=== PATIENT | female | born 1980 | race Caucasian/White ===

== ENCOUNTER → 2019-10-14 | Outpatient (CLI) | payer OTHER, SELFPAY ==
[2019-10-24 07:06] LABS: HPV APTIMA, High Risk Negative (Negative)
== END | disposition home or self-care (01) ==
LOC: LABSPEC 10-15 11:04
PROVIDERS: Visit Provider Obstetrics & Gynecology
DX: Z12.4 Encounter for screening for malignant neoplasm of cervix (principal)
CPT/HCPCS: 87624; 88175; G0145

== ENCOUNTER → 2020-01-18 | Outpatient (CLI) | payer OTHER, SELFPAY ==
--- NOTE | 2020-01-18 12:40 | RAD_ITS ---
STUDY: HYSTEROSALPINGOGRAM. REASON FOR EXAM: Female, 39 years old. INFERTILITY FLUOROSCOPY TIME (if supplied): ( 30 seconds ) minutes/seconds. 2 images were obtained. TECHNIQUE: A hysterosalpingogram was performed by the wetland scientist. Imaging was provided. COMPARISON: None. FINDINGS: The uterus is unremarkable. Both fallopian tubes were visualized and are patent. RAD/Salpingogram IMPRESSION: Normal hysterosalpingogram. Electronically Signed: Tito Lau, at 14:28 EDT , Service support ,
== END | disposition home or self-care (01) ==
LOC: RAD 12:34
PROVIDERS: Referring Provider Obstetrics & Gynecology; Visit Provider Obstetrics & Gynecology
DX: N97.9 Female infertility, unspecified (principal)
CPT/HCPCS: 58340; 74740; Q9967

== ENCOUNTER 2020-09-07 09:22 | Observation (INO) | payer OTHER, SELFPAY ==
[2020-09-04 12:52] LABS: Hematocrit 44.1 % (37-47); Hemoglobin 14.5 g/dL (12.0-15.0); Mean Corp Hgb Conc 32.9 g/dL (32-36); Mean Corpuscular Volume 91.3 fL (81-99); Mean Platelet Vol. 10.2 fl (6.2-12.0); Platelet Count 242 K/mm3 (150-450); RBC Distribution Width CV 11.9 % (11.6-14.6); RBC Distribution Width SD 39.9 fl (35.1-43.9); Red Blood Count 4.83 M/mm3 (4.2-5.4); White Blood Count 5.4 K/mm3 (4.4-11.0)
[2020-09-04 13:03] LABS: International Normalized Ratio 0.9; Prothrombin Time (Protime)PT. 11.7 SECONDS (11.7-14.9)
[2020-09-04 13:04] LABS: Partial Thromboplast Time 29.6 Seconds (24.1-36.2)
[2020-09-07] VITALS (17 sets, daily range): BP systolic 65–127; BP diastolic 40–84; PULSE 0–113; RESP 0–16; TEMP 35.9–37.1; O2SAT 98–100; BMI 22.6
--- NOTE | 2020-09-07 | IMM_PTH ---
PATIENT: NATHALIE LUCIO LOC: [facility] U#:[id number] AGE/SX: 39/F ROOM: [facility] RE09/07/[address]: Dr. Angie Marcelino MD : 1980 BED: 1 DIS: 09/08/2020 SPEC #: [id number] RECD: 09/08/20 11:09 STATUS: SOUBlu REQ #: [id number] ROSALIE: 09/07/20 00:[address]: Angie Hoyos DEPT: IMMUNOHISTOCHEMISTRY RECD BY: Aicha Zavala ENTERED: 09/08/20 11:10 SP TYPE: IMMUNO OTHR DR: Dr. Tyree De Los Santos MD No Primary Care Phys Tissues: Endometrium, NOS Procedures: CD138 (initial) PHYSICIAN & INSTITUTION [place] [id number] SPECIMEN INFORMATION: Tissue Source: Endometrium with polyp Clinical Info: Irregular menstruation, dysmenorrhea, uterine fibroid Specimen Number: [id number] CPT code: 64228 METHODOLOGY: Deparaffinized sections of prefer/formalin-fixed tissue or PAP/DQ stained slides are incubated with monoclonal/polyclonal antibodies/oligonucleotide probes. Localization is made via biotin free immunoperoxidase method. Appropriate controls are performed and reacted as expected. Results on target cell population are indicated in the following table: RESULTS: ANTIBODY / CLONE RESULT CD138 (B-A38) Rare cells These tests were developed and their performance characteristics determined by [facility]. They may not have been cleared or approved by the U.S. Food and Drug Administration. The FDA has determined that such clearance or approval is not necessary. INTERPRETATION: Endometrium with polyp: Rare plasma cells present.
[2020-09-07 06:26] LABS: Internal QC Validated? YES +Cl - CLEAR BKGD; Pregnancy, Urine Negative Negative
[2020-09-07] MEDS: Lactated Ringers 1,000 ML 100 ML IV ×3 (06:46→15:19)
--- NOTE | 2020-09-07 07:15 | HP.PCM.OB_ITS ---
History and Physical Date of Admission: 09/07/20 Surgical History and Physical Date: 09/04/2020 Name: LISA PUGH Age: 39 Date of : 1980 Lisa Pugh, a 39 year old female 0 0 0 0 0, presents for Hysteroscopic myomectomy with Symphion, Diagnostic laparoscopy, surgical treatment of endometriosis on September 07, 2020 at 7:30. --Lisa has hx uterine fibroids with heavy menstrual bleeding, dysmenorrhea and infertility. She is scheduled for hysteroscopic myomectomy, diagnostic laparoscopy and treatment of endometriosis as indicated. [facility] MEDICATIONS HISTORY: Current medications prescribed by our practice are: 1. dexamethasone 0.5 mg tablet, 1/2 tab po twice weekly 2. letrozole 2.5 mg tablet, On tab by mouth cycle day 3 through 7 ALLERGIES: Sulfa (Sulfonamide Antibiotics), Hives and/or rash Infections - no chicken pox Illnesses - none Accidents - no injuries of consequence Hospitalizations - None Review of Systems: GENERAL - Denies fever, or chills SKIN - Denies skin changes EYES - Denies visual changes EARS - Denies difficulty hearing NOSE - Denies nasal congestion or bleeding MOUTH - Denies sore throat or difficulty swallowing NECK - Denies pain or swelling RESPIRATORY - Denies shortness of breath or wheezing CARDIOVASCULAR - Denies palpitations or chest pain GASTROINTESTINAL - Denies nausea, vomiting, diarrhea, constipation GENITOURINARY - Denies dysuria, frequency of urination, incontinence of urine MUSCULOSKELETAL - Denies joint or muscle pain NEUROLOGICAL - Denies localized numbness or weakness PSYCHIATRIC - Denies depression or anxiety ENDOCRINE - Denies heat or cold intolerance, weight loss or gain HEMATO-IMMUNOLOGIC - Denies excesive bleeding with cuts SOCIAL HISTORY: Alcohol Use - RARELY Smoking - used to smoke but quit Diet - balanced Diet Lifestyle - Exercise - none Seat Belt Use - always Employer - Self-employed 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 none ; - PHYSICAL EXAM BP- 118/86 Sitting, Right arm, regular cuff Temp- 98.0 Taken Orally Weight- 115.03133 lbs Height- 59.00 inch BMI:23.28 CONSTITUTIONAL - NAD, well nourished, and well developed SKIN - No rash, lesions, or ulcers HEENT - normocephalic, atraumatic, sclerae anicteric LUNGS - CTA x2 without wheezes, crackles or rales CARDIAC - Regular rate and rhythm without rubs, murmurs, or gallops ABDOMEN - Without hepatosplenomegaly, distention, masses, rebound, or guarding; normal bowel sounds; no hernias EXTREMITIES - No edema or calf tenderness NEUROLOGICAL - normal gait, normal balance, normal motor PSYCHIATRIC - A and O to time, place, person, mood and affect ASSESSMENT/PLAN: 1. Other Specified Irregular Menstruation, Dysmenorrhea, Unspecified and Uterine Fibroid Reviewed procedural r/b/i/a Consents signed Discussed preprocedural preparation and med management - will continue low dose steroid Preop labs today Pt questions answered to her satisfaction
[2020-09-07] MEDS: Lidocaine 1% (30 ml sdv) 30 ML Vial (07:20)
--- NOTE | 2020-09-07 07:30 | EMB_PTH ---
PATIENT: NATHALIE LUCIO LOC: [facility] U#:[id number] AGE/SX: 39/F ROOM: [facility] RE09/07/[address]: Dr. Angie Marcelino MD : 1980 BED: 1 DIS: 09/08/2020 SPEC #: [id number] RECD: 09/07/20 11:22 STATUS: JEAN MARIE NARVAEZ #: [id number] ROSALIE: 09/07/20 07:[address]: Angie Hoyos DEPT: SURGICAL PATHOLOGY RECD BY: Nedra Quiles ENTERED: 09/07/20 13:01 SP TYPE: ENDOM BX/C JAYLON DR: Dr. Tyree De Los Santos MD No Primary Care Phys Tissues: Endometrium, NOS Procedures: Surgery Specimen Level IV HEADER OPERATION: Hysteroscopy with Symphion PRE-OP DIAGNOSIS: Irregular menstruation, dysmenorrhea, uterine fibroid TISSUE SUBMITTED: Endometrium and polyp MICROSCOPIC DIAGNOSIS Endometrium, curettings: Polypoid fragments of mildly disordered endometrium. Rare plasma cells suggestive of minimal chronic inflammation. Rare strips of benign superficial endocervix. See comment. AM:jeffery 09/08/2020 COMMENT Immunohistochemistry ([id number]) supports the above diagnosis. MICROSCOPIC DESCRIPTION Slides are reviewed. GROSS DESCRIPTION Received in fixative is one container labeled with the patient's name and designated endometrium and polyp. The specimen consists of multiple fragments of suarez-pink to hemorrhagic soft tissue that in aggregate measure 2.5 x 1 x 0.2 cm. The specimen is totally submitted in one cassette. / SJ:jeffery 09/07/2020 TC:2 CPT: 40640
--- NOTE | 2020-09-07 08:49 | EKG12_ITS ---
Test Reason : POST OP Blood Pressure : / mmHG Vent. Rate : 099 BPM Atrial Rate : 099 BPM P-R Int : 156 ms QRS Dur : 072 ms QT Int : 342 ms P-R-T Axes : 066 049 044 degrees QTc Int : 438 ms Normal sinus rhythm Normal ECG Confirmed by LAKEISHA LUNA, ANNE-MARIE ([id number]), newspaper editor JAZMYNE MOORE ([id number]) on 09/12/2020 10:24:08 A M Referred By: Angie Marcelino Confirmed By:BRIANNE SUAZO MD
--- NOTE | 2020-09-07 09:03 | PCM.OPRPT ---
Problems Associated Problem List Diagnoses (1) Dysmenorrhea: (2) Menorrhagia: (3) Uterine fibroid: Report of Operation Date of Procedure: 09/07/20 Pre-Operative Diagnosis: 1. Dysmenorrhea 2. Menorrhagia Post-Operative Diagnosis: 1. Dysmenorrhea 2. Menorrhagia Surgery/Procedure Performed:: Hysteroscopic polypectomy with Symphion Diagnostic laparoscopy Surgeon: Angie Hoyos automotive sales associate: Akin Cannon Type of Anesthesia: General and Local Anesthesiologist: Jaxon Mcpherson Specimen's removed: endometrial sampling with polyp Estimated Blood Loss (mL): 5 Description of Procedure: Indications: 39-year-old nulligravida with a history of menorrhagia, chronic dysmenorrhea with heavy menses in the setting of infertility presents for scheduled hysteroscopic myomectomy for uterine fibroid and diagnostic laparoscopy to rule out endometriosis. Procedure risks, benefits, indications and alternatives were reviewed and patient desired to proceed. Procedure: The patient was brought to the operating room and signed and performed. She placed in the dorsal supine position and induced under general anesthesia and intubated. She was repositioned to dorsolithotomy and examination under anesthesia was performed. Straight catheterization of the bladder was done. The abdomen and perineum were prepped and draped in sterile fashion. Patient placed into high lithotomy and a speculum placed in the vagina. Cervix was Grasped with a single-tooth tenaculum at the anterior cervical lip and a paracervical block was placed with a total of 20 cc of 1% lidocaine. The uterus was sounded. The cervix was subsequently dilated hysteroscopy performed using the Symphony on system demonstrating endometrial polyps with no evidence of a fibroid impinging on the endometrium. Endometrial sampling and polyp resection were performed using the Symphion. The hysteroscopy was completed and scope was removed. A ZUMI uterine manipulator was placed and secured. The patient was placed into low lithotomy attention turned to the abdomen. An inferior umbilical incision was made using the scalpel and Veress needle placed with abdominal entry pressure less than 5 mmHg. There was a successful hanging drop test with no aspirate. The abdomen was insufflated to 15 mmHg. The Veress needle was removed. On placement of the trocar with the laparoscope was advised by the anesthesiology team the patient had bradycardia. This was followed by approximately 20 seconds of asystole. The abdominal cavity was entered with the trocar as confirmed by laparoscopy and the abdomen was immediately desufflated and the trocar removed. The chest compressions were initiated, however, patient pulse was detected shortly thereafter and compressions discontinued. Vitals stabilized. I felt it in the best interest of the patient to discontinue the procedure and assess her further. The abdominal incision was closed using 4-0 Monocryl by the SOCIAL WELFARE ADMINISTRATOR under my supervision. The ZUMI uterine manipulator was removed. The patient was then repositioned to dorsal supine, awakened, extubated and transferred to the recovery room without further complication. Consider glycopyrrolate administration for further laparoscopy. Complications Bradycardia to asystole on insufflation. Glycopyrrolate and Atropine administered. Admit VTE Documentation VTE Present on Admission: No VTE Mechan Device Prophylaxis: SCD's
[2020-09-07 09:32] LABS: Hematocrit 39.9 % (37-47); Mean Corp Hgb Conc 32.6 g/dL (32-36); Mean Corpuscular Volume 92.1 fL (81-99); Mean Platelet Vol. 9.8 fl (6.2-12.0); Platelet Count 195 K/mm3 (150-450); RBC Distribution Width CV 11.9 % (11.6-14.6); RBC Distribution Width SD 40.3 fl (35.1-43.9); Red Blood Count 4.33 M/mm3 (4.2-5.4); White Blood Count 4.8 K/mm3 (4.4-11.0)
[2020-09-07 09:43] LABS: Albumin, Serum 3.6 g/dL (3.2-5.0)
[2020-09-07 09:48] LABS: Anion Gap 6 (5-15); BUN 17 mg/dL (7-18); BUN/Creat Ratio 23.4 RATIO (10-20); Calcium,Total 8.6 mg/dL (8.5-10.1); Chloride 105 mmol/L (98-107); Creatinine, Serum 0.73 mg/dL (0.55-1.02); EST Glomerular Filtration Rate 95 mL/min (>60); Est Glom Filt Rate - Afr Amer 115 mL/min (>60); Estimated Creatinine Clearance 84.62 ml/min; Glucose 112 mg/dL (74-106); Magnesium 1.9 mg/dL (1.6-2.6); Potassium 3.8 mmol/L (3.5-5.1); Sodium Level 138 mmol/L (136-145)
--- NOTE | 2020-09-07 10:14 | PCM.DC.SUM ---
Providers Date of Admission: 09/07/20 Primary Care Physician: No Primary Care Phys Reason For Visit: HYSTEROSCOPY D&C SYMPHION/DIAG LAP ENDOMETRIOSIS Diagnosis Discharge Diagnosis (1) Dysmenorrhea: Status: Acute Code(s): N94.6 - Dysmenorrhea, unspecified (2) Menorrhagia: Status: Acute Code(s): N92.0 - Excessive and frequent menstruation with regular cycle (3) Uterine fibroid: Status: Acute Code(s): D25.9 - Leiomyoma of uterus, unspecified Medications at Discharge Home Medications B.breve-L.acid-L.rham-S.thermo 2 tab PO DAILY 08/31/20 Cortisol Supervisor Open Hearth Stockyard 2 tab PO/SL DAILY 08/31/20 Excedrin Extra Strength 1 tab PO Q6H PRN 08/31/20 Mario-Inositol 2,000 mg PO/SL BID 08/31/20 Progestrone 200 mg OTHER PRN PRN 08/31/20 Smarty Pants 3 tab PO/SL BID 08/31/20 Vitamin C 1,000 mg PO DAILY 08/31/20 cholecalciferol (vitamin D3) [Vitamin D3] 500 mcg PO MO 08/31/20 dexamethasone 0.25 mg PO MOTH 08/31/20 omega-3 fatty acids 2,000 mg PO DAILY 08/31/20 mgyildflrz-veibwnaptluwq-kfpw 2 tab PO Q12H PRN PRN #30 tab 09/08/20 ibuprofen 600 mg PO Q8H PRN #30 tab 09/08/20 Hospital Course Operations - (Hysteroscopic polypectomy, Diagnostic laparoscopy) Summary of Care Provided Hospital Course: 39yo nulligravida with history of uterine fibroids, heavy menses, dysmenorrhea, and infertility presented for scheduled hysteroscopy and laparoscopy to r/o endometriosis. She underwent hysteroscopy, however following abdominal insufflation experienced bradycardia to asystole for 20 seconds. The pulse recovered following administration Glycopyrrolate and Atropine. The laparoscopy was discontinued for patient safety. She was stabilized, awakened and extubated. Troponins and electrolytes were normal immediately post-op. Hospitalist consultation obtained and echocardiogram was performed. She was discharged to home on post-operative day#1. ABG / Lab / Microbiology Data Result Diagrams: 09/07/20 09:15 09/07/20 09:15 Laboratory: Laboratory Results - last 24 hr 09/07/20 09/07/20 09/07/20 06:15 09:15 09:15 WBC 4.8 RBC 4.33 Hgb 13.0 Hct 39.9 MCV 92.1 MCH 30.0 MCHC 32.6 RDW Std Deviation 40.3 RDW Coeff of Andrew 11.9 Plt Count 195 MPV 9.8 Sodium 138 Potassium 3.8 Chloride 105 Carbon Dioxide 27.0 Anion Gap 6 BUN 17 Creatinine 0.73 Estim Creat Clear Calc 84.62 Est GFR (MDRD) Af Amer 115 Est GFR (MDRD) Non-Af 95 BUN/Creatinine Ratio 23.4 H Glucose 112 H Calcium 8.6 Magnesium 1.9 Troponin I < 0.015 Albumin Urine Test Negative 09/07/20 09:15 WBC RBC Hgb Hct MCV MCH MCHC RDW Std Deviation RDW Coeff of Andrew Plt Count MPV Sodium Potassium Chloride Carbon Dioxide Anion Gap BUN Creatinine Estim Creat Clear Calc Est GFR (MDRD) Af Amer Est GFR (MDRD) Non-Af BUN/Creatinine Ratio Glucose Calcium Magnesium Troponin I Albumin 3.6 Urine Test D/C Instructions Discharge Diet: No restrictions Discharge Activity: Return to Normal Activity and May Take a Tub Bath May resume sexual activity in: - (2-4 weeks) Lifting Restricted to (Lbs): 10 Call your doctor if your incision/area has: Continuous Slow Oozing, Sudden Increased Bleeding, Increased Pain/ Swelling, Increased Redness, Foul Smelling Discharge and Swelling at the incision site Call your doctor if you observe: Fever of 101 or Higher, Using more than one pad per hour, Shortness of breath, Chest pain and Uncontrolled pain Remove Dressing in: 3 days Cleanse incision/area with: Soap & Water Please Follow Up With: Angie Hoyos MD When: 2-4 weeks - office will call for follow up Meaningful Use Info Meaningful Use Diagnoses (Choose all that apply): None applicable Discharge Plan Admission Admit Date/Time: 09/07/20 09:22 Attending Provider: Angie Hoyos Primary Care Provider: Care Physician,No Primary Consulting Providers: Tyree De Los Santos Instructions Patient Instructions: ED About Arrhythmias, ED Bradycardia Additional Instructions / Restrictions: after that. monitor and follow with Dr. Ramey 330-day event Discharge Orders/Prescriptions Prescriptions: New zmcyliqlpj-vpfuusbipjpgm-ybvt 50-325-40 mg Tablet 2 tab PO Q12H PRN PRN (Reason: Headache) Qty: 30 RF: 1 ibuprofen 600 mg tablet 600 mg PO Q8H PRN (Reason: pain) Qty: 30 RF: 0 Continued Vitamin C 1,000 mg Tablet Extended Release 1,000 mg PO DAILY RF: 0 dexamethasone 0.25 mg Tablet 0.25 mg PO MOTH RF: 0 Excedrin Extra Strength 250-250-65 mg Tablet 1 tab PO Q6H PRN (Reason: headaches) RF: 0 omega-3 fatty acids Capsule 2,000 mg PO DAILY RF: 0 cholecalciferol (vitamin D3) [Vitamin D3] 125 mcg (5,000 unit) Tablet 500 mcg PO MO RF: 0 B.breve-L.acid-L.rham-S.thermo 3 billion cell Tablet,Chewable 2 tab PO DAILY RF: 0 Cortisol Supervisor [employer]yard 2 tab PO/SL DAILY RF: 0 Mario-Inositol 2,000 mg PO/SL BID RF: 0 Progestrone 200 mg OTHER PRN PRN (Reason: menstration peak) RF: 0 Smarty Pants 3 tab PO/SL BID RF: 0 Other Ambulatory Orders: COVID 19 AG RAPID (RN COLLECT) (Routine) Timeframe: 20200904 Facility: [facility] - Location: Laboratory Ordered By: Dr. Kalpesh Downing ,Urine (Routine) Timeframe: [id number] Facility: [facility] - Location: Laboratory Ordered By: Dr. Kalpesh Downing 30-Day Event Recorder (Routine) Location: None Selected Ordered By: Dr. Tyree De Los Santos Referrals / Follow Up: Leslie Jacques MD [STAFF PHYSICIAN] - Within 1 Month (Follow-up in 1 month after 30-day event monitor for sinus arrest during anesthesia with history of vasovagal syncope) Care Physician,No Primary [Primary Care Provider] - Disposition Discharge Orders: Discharge Patient (Routine); Ordered 09/08/20 Ordered By: Dr. Angie Marcelino
--- NOTE | 2020-09-07 10:26 | CON.PCM.HO_ITS ---
Assessment & Plan Assessment/Plan (1) Menorrhagia: (2) Uterine fibroid: (3) Sinus pause: (4) Sinus bradycardia by electrocardiogram: PLAN: 1. Sinus pause for about 48 seconds with sinus bradycardia probably related to anesthetic agents with underlying history of strong vasovagal reflex: Patient is being admitted in PCU for cardiac monitoring. BMP shows normal electrolytes, kidney function and anion gap. IV fluid normal saline 100 mL/h. 2D echo is ordered. Avoid AV mirian medications. 2. History of syncope in the past with migraine headache: On Excedrin 3. Exercise-induced asthma: She did not had episode of asthma in recent past. She used to take albuterol inhaler before exercise. 4. Menorrhagia, infertility, uterine fibroid: Being managed by PRODUCTION CLOTH CUTTER Dr. Fields. DVT prophylaxis: Early ambulation. Bilateral SCDs HPI Consult Data Date of Consult: 09/07/20 PCP / Referring MD: aminata HPI Narrative Reason for Consultation: Sinus pause HPI Narrative: NATHALIE LUCIO, is a 39 F with history of recurrent syncope, strong vagal reflex was in OR for elective hysteroscopy polypectomy with diagnostic laparoscopy for infertility, menorrhagia and dysmenorrhea. Patient has uterine fibroid. During insufflation for laparoscopy, patient paused from 8: 40: 12 to 8: 40: 36. Her BP was 65/40, heart rate was in 30s and glycopyrrolate was given. During that time, she also had 6 chest compressions although she did not go into cardiac arrest. At that time atropine 0.4 mg was given heart rate went up 106/min, blood pressure 114/84, 113/79. She is alert, awake, oriented x3 and having water and ice chips at bedside. No dizziness, chest pain, shortness of breath. Twelve-lead EKG shows sinus tachycardia at 113 bpm, QTC 469 ms. Patient has history of recurrent syncope, total 3 in her lifetime. She had 1 syncope after Benadryl which she took for bee sting. She describes the prior event which starts with heart rate slowing down, feeling of warmth, nausea, and discomfort and results consistent with strong vasovagal reflex. She denies syncope with defecation, micturition, eating, on a strong emotional stimulus. She denies congenital heart disease. Her father had mitral stenosis and of complication in 60s. Her mother is healthy. Past medical history: Exercise-induced asthma, migraine headache which takes Excedrin, infertility, menorrhagia and uterine fibroid. No history of hypertension, diabetes mellitus, cardiac disease. [facility] Medical History Anxiety Asthma Back pain Irregular heart beat Migraine headache Non-smoker Seizures Shortness of breath on exertion Venous insufficiency of right leg Wears glasses Home Medications B.breve-L.acid-L.rham-S.thermo [Probiotic] 2 tab PO DAILY 08/31/20 [History Last Taken Unknown] Cortisol Senior Test Analyst 2 tab PO/SL DAILY 08/31/20 [History Last Taken Unknown] Mario-Inositol 2,000 mg PO/SL BID 08/31/20 [History Last Taken Unknown] Progestrone 200 mg OTHER PRN PRN 08/31/20 [History Last Taken Unknown] Smarty Pants 3 tab PO/SL BID 08/31/20 [History Last Taken Unknown] ascorbic acid (vitamin C) [Vitamin C] 1,000 mg PO DAILY 08/31/20 [History Last Taken Unknown] kounplt-ifioanauclfcc-dtnhsvkg [Excedrin Extra Strength] 1 tab PO Q6H PRN 08/31/20 [History Last Taken Unknown] cholecalciferol (vitamin D3) [Vitamin D3] 500 mcg PO MO 08/31/20 [History Last Taken Unknown] dexamethasone 0.25 mg PO MOTH 08/31/20 [History Last Taken Unknown] omega-3 fatty acids [Fish Oil] 2,000 mg PO DAILY 08/31/20 [History Last Taken Unknown] Allergy/AdvReac Type Severity Reaction Status Date / Time Sulfa (Sulfonamide Allergy Hives Verified 08/31/20 13:44 Antibiotics) diphenhydramine AdvReac passed out Verified 08/31/20 13:44 [From Benadryl] lactose AdvReac Nausea/Vom/ Verified 08/31/20 13:44 Diarrhea Social History Smoking Status: Never smoker ROS ROS Narrative Constitutional: No fatigue and weakness. Awake and alert. HEENT: Reports systems reviewed and no addt'l complaints, except as documented Respiratory/Chest: Denies shortness of breath with exertion. No chest pain Gastrointestinal: Denies coffee ground emesis, hematemesis or vomiting Genitourinary: Denies burning urination Musculoskeletal: Reports joint pain and limited range of motion Neurologic: Denies seizure-like activity Endocrinology: Reports systems reviewed and no addt'l complaints, except as documented Hematologic/Lymphatic: Reports systems reviewed and no addt'l complaints, except as documented Rest 12 ROS are negative except as mentioned in HPI Physical Exam Narrative General: Alert, Oriented x3, Cooperative HEENT: Atraumatic, PERRLA, EOMI, Normocephalic Oral: No Gingival or Mucosal Lesions/ Ulcerations Neck: Supple, No JVD, Negative Carotid Bruits Lungs: Air entry equal in bilateral lung bases. No crepitation/rhonchi Cardiovascular: Sinus tachycardia, Normal S1, Normal S2, No murmurs Abdomen: Bowel Sounds absent, Soft, Non Tender, Non-Distended. Laparoscopic por t dressing dry. : No renal angle tenderness. No suprapubic tenderness. Extremities: No edema, Capillary Refill Less than 3 Seconds Skin: No rashes, No breakdown Musculoskeletal: No Tenderness to Palpation of Joints or Extremities Neurological: Cranial nerves II-XII grossly intact, Deep Tendon Reflexes 2+/4 and Symmetrical, Neuro grossly intact Psych/Mental Status: Normal Affect, Appropriate. Lab / Micro Data Result Diagrams: 09/07/20 09:15 09/07/20 09:15 Labs: Laboratory Results - last 24 hr 09/07/20 09/07/20 09/07/20 06:15 09:15 09:15 WBC 4.8 RBC 4.33 Hgb 13.0 Hct 39.9 MCV 92.1 MCH 30.0 MCHC 32.6 RDW Std Deviation 40.3 RDW Coeff of Andrew 11.9 Plt Count 195 MPV 9.8 Sodium 138 Potassium 3.8 Chloride 105 Carbon Dioxide 27.0 Anion Gap 6 BUN 17 Creatinine 0.73 Estim Creat Clear Calc 84.62 Est GFR (MDRD) Af Amer 115 Est GFR (MDRD) Non-Af 95 BUN/Creatinine Ratio 23.4 H Glucose 112 H Calcium 8.6 Magnesium 1.9 Troponin I < 0.015 Albumin Urine Test Negative 09/07/20 09:15 WBC RBC Hgb Hct MCV MCH MCHC RDW Std Deviation RDW Coeff of Andrew Plt Count MPV Sodium Potassium Chloride Carbon Dioxide Anion Gap BUN Creatinine Estim Creat Clear Calc Est GFR (MDRD) Af Amer Est GFR (MDRD) Non-Af BUN/Creatinine Ratio Glucose Calcium Magnesium Troponin I Albumin 3.6 Urine Test Charges/Coding Visit Charges OBSV E&M: 59804 Initial observation care L3
--- NOTE | 2020-09-07 10:43 | ECHOD_ITS ---
Reason For Study: Sinus pause Procedure This was a 2D Doppler, Color Flow transthoracic echocardiogram. Exam performed in department. Left Ventricle Normal LV size. The estimated ejection fraction is 60 %. No evidence for diastolic dysfunction. No regional wall motion abnormalities noted. Right Ventricle Normal RV size. Normal systolic function. Atria Normal left atrium. Normal right atrium. No doppler evidence for ASD. Mitral Valve There is no mitral valve stenosis. Trivial mitral valve insufficiency. Tricuspid Valve There is no tricuspid stenosis. No tricuspid valve insufficiency. Unable to estimate RV systolic pressure due to insufficient tricuspid regurgitant envelope. Aortic Valve Trisinus/trileaflet aortic valve. There is no aortic stenosis. No aortic valve insufficiency. Pulmonic Valve There is no pulmonic valvular stenosis. No pulmonic valve insufficiency. Great Vessels Normal aortic root. Pericardium/Pleural No pericardial effusion. MMode/2D Measurements & Calculations LVIDd: 4.0 cm IVSd: 0.85 cm Ao root diam: 2.4 cm LVIDs: 2.5 cm LVPWd: 0.70 cm RVDd: 2.4 cm FS: 37.9 % LAV(MOD-bp): 21.2 ml LVAd ap4: 21.1 cm2 LVAd ap2: 22.0 cm2 LAV(MOD-bp) Indexed: 14.7 ml/m2 LVLd ap4: 6.9 cm LVLd ap2: 7.0 cm LAV(MOD-sp2): 24.7 ml EDV(MOD-sp4): 53.0 ml EDV(MOD-sp2): 55.8 ml LAV(MOD-sp4): 17.7 ml EDV(sp4-el): 55.1 ml EDV(sp2-el): 58.6 ml LVAs ap4: 10.7 cm2 LVAs ap2: 12.8 cm2 LVLs ap4: 5.5 cm LVLs ap2: 6.2 cm ESV(MOD-sp4): 17.4 ml ESV(MOD-sp2): 21.9 ml ESV(sp4-el): 17.8 ml ESV(sp2-el): 22.7 ml EF(MOD-sp4): 67.1 % EF(MOD-sp2): 60.8 % EF(sp4-el): 67.7 % SV(MOD-sp4): 35.6 ml SV(MOD-sp2): 33.9 ml SV(sp4-el): 37.3 ml LA A4 area: 9.3 cm2 RA A4 area: 8.7 cm2 Doppler Measurements & Calculations MV E max jesus: 118.2 cm/sec Lat Peak E' Jesus: 18.2 cm/sec Med Peak E' Jesus: 10.5 cm/sec MV A max jesus: 100.9 cm/sec E/E' lat: 6.5 E/E' med: 11.3 MV E/A: 1.2 Ao V2 max: 136.5 cm/sec LV V1 max: 111.0 cm/sec Ao max P.5 mmHg LV V1 max P.9 mmHg ECHO/Echo Complete Interpretation Summary The estimated ejection fraction is 60 %. No evidence for diastolic dysfunction. Trivial mitral valve insufficiency. Ordering Physician: Tyree De Los Santos Referring Physician: Angie Hoyos Performed By: Palak Christensen RDCS
[2020-09-07 11:25] LABS: Phosphorus 3.1 mg/dL (2.5-4.9)
--- NOTE | 2020-09-07 13:30 | EKG12_ITS ---
Test Reason : Blood Pressure : / mmHG Vent. Rate : 113 BPM Atrial Rate : 113 BPM P-R Int : 160 ms QRS Dur : 078 ms QT Int : 342 ms P-R-T Axes : 069 073 060 degrees QTc Int : 469 ms Sinus tachycardia Otherwise normal ECG Confirmed by ALICE LUNA, RATNA ([id number]), supervising editor news reel JAZMYNE MOORE ([id number]) on 09/13/2020 9:59:19 AM Referred By: Angie Marcelino Confirmed By:RATNA JENKINS MD
[2020-09-07] MEDS: Acetaminophen/Butalbital/Caffe 1 Tablet 2 TABLET PO (16:14)
[2020-09-08] MEDS: Lactated Ringers 1,000 ML 100 ML IV (00:57)
[2020-09-08 02:21] VITALS: BP 104/66; PULSE 89; RESP 16; TEMP 36.7; O2SAT 98
[2020-09-08 03:59] VITALS: PULSE 93
[2020-09-08 06:19] VITALS: BP 107/61; PULSE 92; RESP 16; TEMP 36.8; O2SAT 98
[2020-09-08 07:17] VITALS: PULSE 90
[2020-09-08 08:17] VITALS: BP 112/74; PULSE 78; RESP 18; TEMP 36.6; O2SAT 100
--- NOTE | 2020-09-08 09:05 | PCM.PROGNOTE ---
Subjective Subjective No issues overnight. Pain controlled, tolerates PO. Had a headache, resolved with Fiorecet. Objective Data Objective Data Vital Signs: Vital Signs Temp Pulse Resp BP Pulse Ox 97.9 F 78 18 112/74 100 09/08/20 08:17 09/08/20 08:17 09/08/20 08:17 09/08/20 08:17 09/08/20 08:17 Oxygen Flow Rate (L/min) 15 Oxygen Delivery Method Room Air Weight: 50.8 kg Body Mass Index (BMI) 22.6 Intake & Output: Intake and Output for Last 24 Hours 09/06/20 09/07/20 09/08/20 23:59 23:59 23:59 Intake Total 2990.00 / 3390.00 1056.67 / 1056.67 Output Total 1900 / 2200 1200 / 1200 Balance 1090.00 / 1190.00 -143.33 / -143.33 Lab / Micro Data Result Diagrams: 09/07/20 09:15 09/07/20 09:15 Labs: Laboratory Results - last 24 hr 09/07/20 09/07/20 09/07/20 09:15 09:15 09:15 WBC 4.8 RBC 4.33 Hgb 13.0 Hct 39.9 MCV 92.1 MCH 30.0 MCHC 32.6 RDW Std Deviation 40.3 RDW Coeff of Andrew 11.9 Plt Count 195 MPV 9.8 Sodium 138 Potassium 3.8 Chloride 105 Carbon Dioxide 27.0 Anion Gap 6 BUN 17 Creatinine 0.73 Estim Creat Clear Calc 84.62 Est GFR (MDRD) Af Amer 115 Est GFR (MDRD) Non-Af 95 BUN/Creatinine Ratio 23.4 H Glucose 112 H Calcium 8.6 Phosphorus Magnesium 1.9 Troponin I < 0.015 Albumin 3.6 09/07/20 09/07/20 09:15 13:50 WBC RBC Hgb Hct MCV MCH MCHC RDW Std Deviation RDW Coeff of Andrew Plt Count MPV Sodium Potassium Chloride Carbon Dioxide Anion Gap BUN Creatinine Estim Creat Clear Calc Est GFR (MDRD) Af Amer Est GFR (MDRD) Non-Af BUN/Creatinine Ratio Glucose Calcium Phosphorus 3.1 Magnesium Troponin I < 0.015 Albumin Physical Exam Const alert, oriented x3 and no apparent distress Resp normal respiratory effort, normal air movement and clear to auscultation bilaterally Cardio regular rate, regular rhythm, S1 normal heart sound and S2 normal heart sound GI normal to inspection, nondistended, normoactive bowel sounds, soft to palpation, non-tender and non-distended GI Narrative: umbilical dressing c/d/i, removed - incision well approximated and nontender with steristrips Extremity no calf tenderness Assessment & Plan Assessment/Plan (1) Sinus pause: PLAN: f/u ECHO results Discharge later today per Dr. De Los Santos, Hospitalist (2) Uterine fibroid: QUALIFIERS: Uterine leiomyoma location: intramural Qualified Code(s): D25.1 - Intramural leiomyoma of uterus (3) Menorrhagia: QUALIFIERS: Menorrhagia type: with regular cycle Qualified Code(s): N92.0 - Excessive and frequent menstruation with regular cycle PLAN: Routine postop care, post hysteroscopy (4) Dysmenorrhea: PLAN: Laparoscopy aborted due to sinus pause, will reschedule at later date (5) Infertility:
--- NOTE | 2020-09-08 12:30 | PHA.DC.MC ---
Pharmacy Service has performed discharge medication reconciliation and counseling for this patient. 1. FIORICET 2T PO BID PRN HEADACHE 2. IBUPROFEN 600MG PO Q8H PRN PAIN The patient's discharge medication list was reviewed for discrepancies and discrepancies were resolved. Home Medications B.breve-L.acid-L.rham-S.thermo 2 tab PO DAILY 08/31/20 Cortisol Advisory Application Developer 2 tab PO/SL DAILY 08/31/20 Excedrin Extra Strength 1 tab PO Q6H PRN 08/31/20 Mario-Inositol 2,000 mg PO/SL BID 08/31/20 Progestrone 200 mg OTHER PRN PRN 08/31/20 Smarty Pants 3 tab PO/SL BID 08/31/20 Vitamin C 1,000 mg PO DAILY 08/31/20 cholecalciferol (vitamin D3) [Vitamin D3] 500 mcg PO MO 08/31/20 dexamethasone 0.25 mg PO MOTH 08/31/20 omega-3 fatty acids 2,000 mg PO DAILY 08/31/20 rjwomljmzv-lbvykiyprcgvm-dkrg 2 tab PO Q12H PRN PRN #30 tab 09/08/20 ibuprofen 600 mg PO Q8H PRN #30 tab 09/08/20 The patient was counseled on the following discharge medications and changes in medications for homegoing were reviewed. The Reason for Use, instructions for use, and potential side effects were reviewed for all new medications. The patient's questions regarding all of their medications were answered. The patient was able to verbally demonstrate an understanding of their discharge medications.
[2020-09-08 13:50] VITALS: BP 115/82; PULSE 77; RESP 18; TEMP 36.6; O2SAT 100
--- NOTE | 2020-09-08 16:41 | PCM.PN.HOSP ---
Subjective Subjective Patient comfortable throughout the hospital stay. No dizziness. Objective Data Objective Data Vital Signs: Vital Signs Temp Pulse Resp BP Pulse Ox 97.9 F 77 18 115/82 H 100 09/08/20 13:50 09/08/20 13:50 09/08/20 13:50 09/08/20 13:50 09/08/20 13:50 Oxygen Flow Rate (L/min) 15 Oxygen Delivery Method Room Air Weight: 111 lb 15.917 oz Body Mass Index (BMI) 22.6 Intake & Output: Intake and Output for Last 24 Hours 09/06/20 09/07/20 09/08/20 23:59 23:59 23:59 Intake Total 2990.00 / 3390.00 2056.67 / 2056.67 Output Total 1900 / 2200 1200 / 1200 Balance 1090.00 / 1190.00 856.67 / 856.67 Lab / Micro Data Result Diagrams: 09/07/20 09:15 09/07/20 09:15 Radiography Diagnostic Testing: Radiology Impression Echocardiogram 09/07/20 10:43 Interpretation Summary The estimated ejection fraction is 60 %. No evidence for diastolic dysfunction. Trivial mitral valve insufficiency. 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 No sinus arrest or sinus pause during hospital stay. General: Alert, Oriented x3, Cooperative HEENT: Atraumatic, PERRLA, EOMI, Normocephalic Oral: No Gingival or Mucosal Lesions/ Ulcerations Neck: Supple, No JVD, Negative Carotid Bruits Lungs: Air entry equal in bilateral lung bases. No crepitation/rhonchi Cardiovascular: Normal sinus rhythm, normal S1, Normal S2, No murmurs Abdomen: Bowel Sounds absent, Soft, Non Tender, Non-Distended. Laparoscopic port dressing dry. : No renal angle tenderness. No suprapubic tenderness. Extremities: No edema, Capillary Refill Less than 3 Seconds Skin: No rashes, No breakdown Musculoskeletal: No Tenderness to Palpation of Joints or Extremities Neurological: Cranial nerves II-XII grossly intact, Deep Tendon Reflexes 2+/4 and Symmetrical, Neuro grossly intact Psych/Mental Status: Normal Affect, Appropriate. Assessment & Plan Assessment/Plan (1) Menorrhagia: QUALIFIERS: Menorrhagia type: with regular cycle Qualified Code(s): N92.0 - Excessive and frequent menstruation with regular cycle (2) Uterine fibroid: QUALIFIERS: Uterine leiomyoma location: intramural Qualified Code(s): D25.1 - Intramural leiomyoma of uterus (3) Sinus pause: (4) Sinus bradycardia by electrocardiogram: PLAN: 1. Sinus pause for about 48 seconds with sinus bradycardia probably related to anesthetic agents with underlying history of strong vasovagal reflex: Patient is being admitted in PCU for cardiac monitoring. BMP shows normal electrolytes, kidney function and anion gap. Avoid AV mirian medications. Serial troponin enzymes negative. IV fluid discontinued. Discussed with the letter of credit document examiner, Dr. Jacques. 30-day event monitor prescription signed and advised to follow-up with cardiology after 30 days. 2D echo normal EF 60%. Trivial MR. Normal left atrium. 2. History of syncope in the past with migraine headache: On Excedrin 3. Exercise-induced asthma: She did not had episode of asthma in recent past. She used to take albuterol inhaler before exercise. 4. Menorrhagia, infertility, uterine fibroid: Being managed by [facility] Dr. Fields. DVT prophylaxis: Early ambulation. Bilateral SCDs Discussed with the ROR ENGINEER attending. Discharge plan was discussed with the patient and her and the ROR ENGINEER attending. Patient is medically stable for discharge. Visit Charges Inpatient E&M: 60756 Subs Hosp L2
== END 2020-09-08 09:00 | disposition home or self-care (01) ==
LOC: SDC 09:34 → MS3 09:34 → PCU 10:13
PROVIDERS: Anesthesiology; Internal Medicine; Admitting Provider Obstetrics & Gynecology; Referring Provider Obstetrics & Gynecology; Visit Provider Obstetrics & Gynecology
PROC: 0UB98ZZ Excision of Uterus, Via Natural or Artificial Opening Endoscopic (ICD-10-PCS; CPT 58558; principal; 2020-09-07 07:15)
PROC: (CPT 49320; 2020-09-07 07:15)
DX: N84.0 Polyp of corpus uteri (principal); N94.6 Dysmenorrhea, unspecified; N92.1 Excessive and frequent menstruation with irregular cycle; Z86.018 Personal history of other benign neoplasm; I34.0 Nonrheumatic mitral (valve) insufficiency; R00.0 Tachycardia, unspecified; Z79.52 Long term (current) use of systemic steroids; N97.9 Female infertility, unspecified; Z87.891 Personal history of nicotine dependence; Z79.899 Other long term (current) drug therapy; J45.909 Unspecified asthma, uncomplicated; I97.791 Other intraoperative cardiac functional disturbances during other surgery; Y83.8 Other surgical procedures as the cause of abnormal reaction of the patient, or of later complication, without mention of misadventure at the time of the procedure; Y92.234 Operating room of hospital as the place of occurrence of the external cause; J45.990 Exercise induced bronchospasm; G43.909 Migraine, unspecified, not intractable, without status migrainosus; R00.1 Bradycardia, unspecified
CPT/HCPCS: 58558; 36415; 80048; 81025; 82040; 83735; 84100; 84484; 85027; 85610; 85730; 86850; 86900; 86901; 88305; 88342; 93005; 93306; 96360; 96361; 99218; J7120; G0378; G0379; J2405

== ENCOUNTER → 2020-12-06 13:33 | Outpatient (CLI) | payer OTHER, SELFPAY ==
[2020-12-08 20:08] LABS: Chlamydia By Nucleic Acid AMP Negative (Negative)
[2020-12-08 21:09] LABS: Gonococcus By Nucleic Acid AMP Negative (Negative)
== END ==
PROVIDERS: Visit Provider Obstetrics & Gynecology
DX: Z11.3 Encounter for screening for infections with a predominantly sexual mode of transmission (principal)
CPT/HCPCS: 87491; 87591

== ENCOUNTER → 2020-12-20 11:47 | Outpatient (CLI) | payer OTHER, SELFPAY ==
[2020-12-20 15:04] LABS: Color, Urine Yellow (Yellow); Glucose, Dipstick Normal (Normal); Ketone-Dipstick Negative (Negative); Leukocyte Esterase-Dipstick Negative /ul (Negative); Nitrite-Dipstick Negative (Negative); Occult Blood-Urine 25 /ul (Negative); Protein-Dipstick 15 mg/dl (Negative); Urine Bilirubin Dipstick Negative (Negative); Urine Clarity Clear (Clear); Urine Urobilinogen Normal (Normal)
[2020-12-20 15:07] LABS: Absolute Lymphocyte Count 2.09 X10^3/uL (0.83-4.51); Absolute Neutrophil Count 5.2 X10^3/uL (2.0-7.7); Basophil# 0.04 X10^3/uL; Basophil% 0.5 % (0-1); Eosinophil# 0.08 X10^3/uL; Hematocrit 40.2 % (37-47); Hemoglobin 13.4 g/dL (12.0-15.0); Lymphocyte # 2.09 X10^3/ul (0.83-4.51); Lymphocyte % 26.1 % (19-41); Mean Corp Hgb Conc 33.3 g/dL (32-36); Mean Corpuscular Hgb 30.4 pg (27.0-32.0); Mean Corpuscular Volume 91.2 fL (81-99); Monocyte# 0.56 X10^3/uL; NRBC Flagged by Analyzer 0 % (0-5); Neutrophil # 5.21 X10^3/uL (2.7-7.7); Platelet Count 181 K/mm3 (150-450); RBC Distribution Width CV 12.5 % (11.6-14.6); RBC Distribution Width SD 41.8 fl (35.1-43.9); Red Blood Count 4.41 M/mm3 (4.2-5.4)
[2020-12-20 15:27] LABS: Amphetamine Urine VISTA NEGATIVE (<1000 ng/mL); Barbiturate Urine VISTA NEGATIVE (< 200 ng/mL); Benzodiazepine Urine VISTA NEGATIVE (< 200 ng/mL); Cocaine Urine VISTA NEGATIVE (< 300 ng/mL); Ecstacy Urine VISTA NEGATIVE (< 500 ng/mL); Methadone Urine VISTA NEGATIVE (< 300 ng/mL); PCP Urine VISTA NEGATIVE (< 25 ng/mL); THC Urine VISTA NEGATIVE (< 50 ng/mL); Vista UDS pH Range 6
[2020-12-21 10:10] LABS: HIV - WCH Non-Reactive (Nonreactive); Hepatitis B Surface Antigen Non-Reactive (Nonreactive); Hepatitis C Antibody Non-Reactive (Nonreactive); Rubella IgG Reactive (Nonreactive); Syphilis Antibodies Non-reactive
== END ==
PROVIDERS: Visit Provider Obstetrics & Gynecology
DX: Z32.01 Encounter for pregnancy test, result positive (principal)
CPT/HCPCS: 36415; 80307; 81002; 84443; 85025; 86703; 86762; 86780; 86803; 87086; 87088; 87340

== ENCOUNTER 2021-05-04 15:06 | Outpatient (CLI) | payer BC, SELFPAY ==
[2021-05-04 16:28] LABS: Hematocrit 41.1 % (37-47); Hemoglobin 13.5 g/dL (12.0-15.0); Mean Corp Hgb Conc 32.8 g/dL (32-36); Mean Corpuscular Hgb 29.9 pg (27.0-32.0); Mean Corpuscular Volume 91.1 fL (81-99); Mean Platelet Vol. 11.1 fl (6.2-12.0); Platelet Count 214 K/mm3 (150-450); RBC Distribution Width CV 13.1 % (11.6-14.6); RBC Distribution Width SD 42.8 fl (35.1-43.9); Red Blood Count 4.51 M/mm3 (4.2-5.4); White Blood Count 8.6 K/mm3 (4.4-11.0)
[2021-05-04 16:41] LABS: Protein, Urine (Random) 21.5 mg/dL (<11.9); Protein:Creat Ratio 343 mg/g CRE (0-200)
[2021-05-04 17:13] LABS: ALB/GLOB Ratio 0.7 RATIO (0.9-2.4); AST(SGOT) 11 U/L (15-37); Alanine Aminotransfer ALT/SGPT 15 U/L (13-56); Albumin, Serum 2.7 g/dL (3.2-5.0); Alkaline Phosphatase 134 U/L (45-117); Anion Gap 8 (5-15); BUN 16 mg/dL (7-18); BUN/Creat Ratio 29.9 RATIO (10-20); Calcium,Total 9.8 mg/dL (8.5-10.1); Chloride 106 mmol/L (98-107); Creatinine, Serum 0.54 mg/dL (0.55-1.02); EST Glomerular Filtration Rate 135 mL/min (>60); Est Glom Filt Rate - Afr Amer 163 mL/min (>60); Globulin 3.9 g/dL (2.2-4.2); Glucose 94 mg/dL (74-106); LDH 161 U/L (84-246); Potassium 3.6 mmol/L (3.5-5.1); Protein, Total 6.6 g/dL (6.4-8.2); Sodium Level 138 mmol/L (136-145); Uric Acid 4.3 mg/dL (2.6-6.0)
[2021-05-04 18:37] LABS: Progesterone Level 139.04 ng/mL (See Comment)
== END 2021-05-04 23:59 | disposition short-term general hospital (02) ==
LOC: WOBLAB 15:06
PROVIDERS: Visit Provider Obstetrics & Gynecology
DX: O13.3 Gestational [pregnancy-induced] hypertension without significant proteinuria, third trimester (principal); Z3A.00 Weeks of gestation of pregnancy not specified
CPT/HCPCS: 36415; 80053; 82570; 83615; 84144; 84156; 84550; 85027

== ENCOUNTER 2021-05-10 16:44 | Outpatient (CLI) | payer BC, SELFPAY ==
[2021-05-10 17:16] LABS: Hematocrit 41.5 % (37-47); Hemoglobin 13.9 g/dL (12.0-15.0); Mean Corp Hgb Conc 33.5 g/dL (32-36); Mean Corpuscular Hgb 29.8 pg (27.0-32.0); Mean Corpuscular Volume 89.1 fL (81-99); Mean Platelet Vol. 10.7 fl (6.2-12.0); Platelet Count 195 K/mm3 (150-450); RBC Distribution Width CV 13.1 % (11.6-14.6); RBC Distribution Width SD 42.3 fl (35.1-43.9); Red Blood Count 4.66 M/mm3 (4.2-5.4); White Blood Count 8.5 K/mm3 (4.4-11.0)
[2021-05-10 17:34] LABS: Protein, Urine (Random) 20.3 mg/dL (<11.9); Protein:Creat Ratio 318 mg/g CRE (0-200)
[2021-05-10 17:34] LABS: AST(SGOT) 12 U/L (15-37); Alanine Aminotransfer ALT/SGPT 16 U/L (13-56); Creatinine, Serum 0.55 mg/dL (0.55-1.02); EST Glomerular Filtration Rate 131 mL/min (>60); Est Glom Filt Rate - Afr Amer 158 mL/min (>60); Uric Acid 4.5 mg/dL (2.6-6.0)
[2021-05-10 17:51] LABS: Prothrombin Time (Protime)PT. 12.7 SECONDS (11.7-14.9)
[2021-05-10 17:52] LABS: Partial Thromboplast Time 30.3 Seconds (24.1-36.2)
== END 2021-05-10 23:59 | disposition short-term general hospital (02) ==
LOC: WOBLAB 16:47
PROVIDERS: Referring Provider Obstetrics & Gynecology; Visit Provider Obstetrics & Gynecology
DX: O13.9 Gestational [pregnancy-induced] hypertension without significant proteinuria, unspecified trimester (principal)
CPT/HCPCS: 36415; 82565; 82570; 84156; 84450; 84460; 84550; 85027; 85610; 85730

== ENCOUNTER 2021-05-16 15:52 | Outpatient (CLI) | payer BC, SELFPAY ==
[2021-05-16 16:45] LABS: Hematocrit 40.9 % (37-47); Hemoglobin 13.8 g/dL (12.0-15.0); Mean Corp Hgb Conc 33.7 g/dL (32-36); Mean Corpuscular Hgb 30.2 pg (27.0-32.0); Mean Corpuscular Volume 89.5 fL (81-99); Mean Platelet Vol. 11.2 fl (6.2-12.0); Platelet Count 206 K/mm3 (150-450); RBC Distribution Width CV 13.2 % (11.6-14.6); RBC Distribution Width SD 42.6 fl (35.1-43.9); Red Blood Count 4.57 M/mm3 (4.2-5.4); White Blood Count 8.6 K/mm3 (4.4-11.0)
[2021-05-17 07:36] LABS: ALB/GLOB Ratio 0.7 RATIO (0.9-2.4); AST(SGOT) 14 U/L (15-37); Alanine Aminotransfer ALT/SGPT 13 U/L (13-56); Albumin, Serum 2.5 g/dL (3.2-5.0); Alkaline Phosphatase 134 U/L (45-117); Anion Gap 9 (5-15); BUN 13 mg/dL (7-18); BUN/Creat Ratio 21.6 RATIO (10-20); Calcium,Total 8.8 mg/dL (8.5-10.1); Chloride 107 mmol/L (98-107); EST Glomerular Filtration Rate 118 mL/min (>60); Est Glom Filt Rate - Afr Amer 143 mL/min (>60); Globulin 3.8 g/dL (2.2-4.2); Glucose 80 mg/dL (74-106); LDH 187 U/L (84-246); Potassium 3.9 mmol/L (3.5-5.1); Protein, Total 6.3 g/dL (6.4-8.2); Sodium Level 137 mmol/L (136-145); Uric Acid 5.9 mg/dL (2.6-6.0)
== END 2021-05-16 23:59 | disposition short-term general hospital (02) ==
LOC: WOBLAB 15:53
PROVIDERS: Visit Provider Obstetrics & Gynecology
DX: O24.419 Gestational diabetes mellitus in pregnancy, unspecified control (principal); O14.90 Unspecified pre-eclampsia, unspecified trimester
CPT/HCPCS: 36415; 80053; 83615; 84550; 85027

== ENCOUNTER 2021-05-23 20:51 | Observation (INO) | payer BC, SELFPAY ==
[2021-05-23] VITALS (22 sets, daily range): BP systolic 129–169; BP diastolic 79–105; PULSE 92–117; TEMP 37.4–37.6; O2SAT 95–99; BMI 28.5
[2021-05-23 10:32] LABS: Hematocrit 38.8 % (37-47); Mean Corp Hgb Conc 33.5 g/dL (32-36); Mean Corpuscular Volume 89.4 fL (81-99); Mean Platelet Vol. 11.1 fl (6.2-12.0); Platelet Count 183 K/mm3 (150-450); RBC Distribution Width CV 13.2 % (11.6-14.6); RBC Distribution Width SD 43.2 fl (35.1-43.9); Red Blood Count 4.34 M/mm3 (4.2-5.4); White Blood Count 8.8 K/mm3 (4.4-11.0)
[2021-05-23 10:51] LABS: AST(SGOT) 12 U/L (15-37); Alanine Aminotransfer ALT/SGPT 13 U/L (13-56); Creatinine, Serum 0.59 mg/dL (0.55-1.02); EST Glomerular Filtration Rate 120 mL/min (>60); Est Glom Filt Rate - Afr Amer 145 mL/min (>60); Estimated Creatinine Clearance 130.53 ml/min; LDH 192 U/L (84-246); Uric Acid 5.8 mg/dL (2.6-6.0)
[2021-05-23] MEDS: Acetaminophen 500 MG Tablet 1000 MG PO ×2 (11:51→20:34)
[2021-05-23 12:05] LABS: Bedside Glucose 80 mg/dL (70-110)
[2021-05-23] MEDS: Betamethasone/Betamethasone 30 MG/5 ML Vial 12 MG IM (12:58)
[2021-05-23] MEDS: Insulin Lispro 100 UNIT/ML INSULN.PEN SC (17:14)
[2021-05-23 17:16] LABS: Bedside Glucose 104 mg/dL (70-110)
[2021-05-23] MEDS: Heparin Injection (Vial) 5,000 UNIT/ML VIAL 5000 UNIT SC (17:17)
[2021-05-23 19:10] LABS: Bedside Glucose 156 mg/dL (70-110)
[2021-05-23] MEDS: Lactated Ringers 500 ML IV.SOLN. IV (19:10)
--- NOTE | 2021-05-23 20:23 | HP.PCM.OB_ITS ---
HPI - General HPI Narrative NATHALIE LUCIO, is a 40 F G1 with hx preeclampsia without severe features sent from office at 34 1/7 weeks gestation with complaint of headache. Issues: -Gestational Diabetes -Preeclampsia with -A neg, also Rh neg -Allergy to Sulfa and Benadryl -AMA -Hx infertility -hx Migraine headaches -Lactose intolerance -Uterine fibroid -Vasovagal syncope Maternal Data Information CANDY Calculator Estimated Delivery Date Method Current WG Current Estimate 07/03/21 LMP (Certain) 34w 1d Final CANDY Source: LMP PFSH PFSH Medical History (Updated 05/23/21 @ 20:[address] Angie Marcelino MD) Anxiety Asthma Back pain Irregular heart beat Migraine headache Non-smoker Seizures Shortness of breath on exertion Sinus bradycardia by electrocardiogram Sinus pause Uterine fibroid Venous insufficiency of right leg Wears glasses Home Medications L.acid-L.rham-B.breve-S.therm 2 tab PO DAILY 08/31/20 [History Last Taken Unknown] Mario-Inositol 2,000 mg PO/SL BID 08/31/20 [History Last Taken Unknown] Progestrone 200 mg OTHER PRN PRN 08/31/20 [History Last Taken Unknown] Smarty Pants 3 tab PO/SL BID 08/31/20 [History Last Taken Unknown] Vitamin C 1,000 mg PO DAILY 08/31/20 [History Last Taken Unknown] cholecalciferol (vitamin D3) [Vitamin D3] 500 mcg PO MO 08/31/20 [History Last Taken Unknown] omega-3 fatty acids 2,000 mg PO DAILY 08/31/20 [History Last Taken Unknown] uaoevlrhda-byttaocyryfbd-vemw 2 tab PO Q12H PRN PRN #30 tab 09/08/20 [Rx Last Taken Unknown] Allergy/AdvReac Type Severity Reaction Status Date / Time Sulfa (Sulfonamide Allergy Hives Verified 08/31/20 13:44 Antibiotics) diphenhydramine AdvReac passed out Verified 08/31/20 13:44 [From Benadryl] lactose AdvReac Nausea/Vom/ Verified 08/31/20 13:44 Diarrhea Surgical History (Updated 05/23/21 @ 20:[address] Angie Marcelino MD) H/O dilation and curettage H/O laparoscopy History of hysteroscopy Social History Smoking Status: Never smoker History 1 Elective abortions Hx Para 1 Spontaneous abortions Hx # Term Pregnancies Ectopic pregnancies Hx # Pregnancies Multiple births # of living children NST FHR Rate Baby A Baseline: 135 Variability:: Moderate Accelerations:: 15 x 15 Decelerations:: None FHR Category:: Category I Uterine Activity:: 0/10 Vital Signs Vital Signs Vital Signs: 05/23/21 09:46 05/23/21 10:06 05/23/21 10:26 Temperature Temperature Source Pulse Rate 92 94 95 Blood Pressure 169/103 H 158/105 H 150/103 H BP Systolic 169 158 150 BP Diastolic 103 105 103 Pulse Ox 05/23/21 10:46 05/23/21 11:06 05/23/21 11:43 Temperature Temperature Source Pulse Rate 92 97 105 H Blood Pressure 133/93 H 144/95 H 139/99 H BP Systolic 133 144 139 BP Diastolic 93 95 99 Pulse Ox 05/23/21 12:13 05/23/21 12:44 05/23/21 13:03 Temperature Temperature Source Pulse Rate 100 102 H 107 H Blood Pressure 140/91 H 138/89 H 139/92 H BP Systolic 140 138 139 BP Diastolic 91 89 92 Pulse Ox 05/23/21 13:13 05/23/21 13:43 05/23/21 14:13 Temperature Temperature Source Pulse Rate 102 H 104 H 102 H Blood Pressure 157/93 H 142/89 H 131/87 H BP Systolic 157 142 131 BP Diastolic 93 89 87 Pulse Ox 05/23/21 14:43 05/23/21 15:47 05/23/21 16:47 Temperature Temperature Source Pulse Rate 102 H 98 105 H Blood Pressure 147/85 H 144/90 H 166/99 H BP Systolic 147 144 166 BP Diastolic 85 90 99 Pulse Ox 05/23/21 17:48 05/23/21 18:30 05/23/21 19:12 Temperature 99.7 F H Temperature Source Temporal Pulse Rate 114 H 117 H 111 H Blood Pressure 130/99 H 140/102 H 130/81 H BP Systolic 130 140 130 BP Diastolic 99 102 81 Pulse Ox 05/23/21 19:19 05/23/21 20:10 Temperature 99.3 F H Temperature Source Temporal Temporal Pulse Rate 102 H Blood Pressure 140/79 H BP Systolic 140 BP Diastolic 79 Pulse Ox 99 Weight Weight: 63.957 kg Body Mass Index (BMI) 28.5 Physical Exam Const alert, oriented x3 and no apparent distress HEENT normocephalic Resp normal respiratory effort, normal air movement and clear to auscultation bilaterally Cardio regular rate and regular rhythm GI normal to inspection, nondistended, normoactive bowel sounds, soft to palpation, non-tender and non-distended Inspection: gravid Extremity Extremity Narrative: +2 b/l LE edema, no calf tenderness Neuro Neuro Narrative: 2+ b/l LE DTRs, no clonus Labs Labs Labs: Blood Type A NEGATIVE Antibody Screen NEGATIVE Hct 38.8 % (37-47) Hgb 13.0 g/dL (12.0-15.0) Syphilis Total Ab Non-reactive Rubella IgG Antibody Reactive (Nonreactive) Hep Bs Antigen Non-Reactive (Nonreactive) Neisseria gonorrhoeae DNA ([place]) Negative (Negative) HIV 1&2 Antibody Non-Reactive (Nonreactive) Assessment & Plan (1) 34 weeks gestation of : PLAN: status overall reassuring (2) Pre-eclampsia affecting , antepartum: PLAN: Labs reviewed and stable Headache resolved with Tylenol Betamethasone for FLM Will observe x 24 hours Plan for IOL if severe range BPs or persistent headache (3) Gestational diabetes mellitus: QUALIFIERS: Gestational diabetes mellitus control: insulin- controlled Trimester: third trimester Qualified Code(s): O24.414 - Gestational diabetes mellitus in , insulin controlled PLAN: Titrate insulin to cover betamethasone course
[2021-05-23] MEDS: Insulin Human 75/25 Kwickpen 20 UNIT SC (22:10)
[2021-05-23 22:16] LABS: Bedside Glucose 129 mg/dL (70-110)
[2021-05-24] VITALS (9 sets, daily range): BP systolic 125–140; BP diastolic 69–85; PULSE 90–122; TEMP 36.7–37.2; O2SAT 97–98
[2021-05-24] MEDS: Acetaminophen 500 MG Tablet 1000 MG PO ×2 (05:31→22:06)
[2021-05-24] MEDS: Heparin Injection (Vial) 5,000 UNIT/ML VIAL 5000 UNIT SC ×3 (05:32→22:09)
[2021-05-24 05:46] LABS: Bedside Glucose 94 mg/dL (70-110)
--- NOTE | 2021-05-24 07:36 | PN.OBGYN_ITS ---
Subjective Subjective No overnight complaints. Denies headache, visual changes, chest pain, shortness of breath, nausea vomiting, right upper quadrant pain. Patient states good movement Objective Data Objective Data Vital Signs: Vital Signs Temp Pulse BP Pulse Ox 98.9 F 100 130/76 H 97 05/24/21 07:23 05/24/21 07:24 05/24/21 07:23 05/24/21 07:24 Weight: 141 lb Body Mass Index (BMI) 28.5 Lab / Micro Data Result Diagrams: 05/23/21 10:15 05/23/21 10:15 Labs: Laboratory Results - last 24 hr 05/23/21 10:15: WBC 8.8, RBC 4.34, Hgb 13.0, Hct 38.8, MCV 89.4, MCH 30.0, MCHC 33.5, RDW Std Deviation 43.2, RDW Coeff of Andrew 13.2, Plt Count 183, MPV 11.1 05/23/21 10:15: Creatinine 0.59, Estim Creat Clear Calc 130.53, Est GFR (MDRD) Af Amer 145, Est GFR (MDRD) Non-Af 120, Uric Acid 5.8, Total Bilirubin 0.20, AST 12 L, ALT 13, Lactate Dehydrogenase 192 05/23/21 11:50: POC Glucose 80 05/23/21 17:08: POC Glucose 104 05/23/21 19:08: POC Glucose 156 H 05/23/21 22:07: POC Glucose 129 H 05/24/21 05:35: POC Glucose 94 Micro: Microbiology 05/23/21 10:18 Nasal Secretion SARS-CoV-2 Antigen (Rapid) - Final Physical Exam Const alert, oriented x3, no apparent distress, average body habitus, healthy appeari ng and well nourished Exam Limitations: no limitations HEENT normocephalic Eyes PERRL Neck full ROM Resp normal respiratory effort, no retractions and no use of accessory muscles GI GI Narrative: Soft, nontender, gravid. Negative right upper quadrant pain Extremity normal to inspection, full ROM and no clubbing, cyanosis or edema Neuro deep tendon reflexes 2+ bilaterally Motor Exam: clonus absent Psych mental status grossly normal, affect normal, speech normal and activity/motor behavior normal Assessment & Plan (1) : PLAN: Hospital day 2 with pre-ED without severe features, labs within normal limits. Patient remains asymptomatic. Today nonsevere range blood pressures on no blood pressure medications. 24-hour urine protein started. Celestone given yesterday, second dose of Celestone today. GDM A2, continue insulin. We will continue to monitor and likely home tomorrow
[2021-05-24] MEDS: Insulin Human 75/25 Kwickpen 18 UNIT SC (08:34)
[2021-05-24] MEDS: Insulin Lispro 100 UNIT/ML INSULN.PEN SC ×3 (08:46→18:09)
[2021-05-24] MEDS: Prenatal Vits Tablet 1 TABLET PO (12:00)
[2021-05-24 12:16] LABS: Bedside Glucose 110 mg/dL (70-110)
[2021-05-24] MEDS: Betamethasone/Betamethasone 30 MG/5 ML Vial 12 MG IM (13:00)
[2021-05-24] MEDS: 0.9% Saline Lock 10 ML Syringe IV ×2 (14:01→22:09)
[2021-05-24 16:50] LABS: Bedside Glucose 123 mg/dL (70-110)
--- NOTE | 2021-05-24 16:55 | NURSING ---
pt passed a small hard round calculi when urinating- dr ac notifed- order for lab path.
[2021-05-24] MEDS: Insulin Human 75/25 Kwickpen 20 UNIT SC (22:08)
[2021-05-24 22:21] LABS: Bedside Glucose 139 mg/dL (70-110)
[2021-05-25 00:10] VITALS: BP 133/68; PULSE 99; TEMP 36.6
[2021-05-25 00:13] LABS: 24 Hour Urine Protein 1669.2 mg/24HR (<150 MG/24HR); 24HR. UA Prot. Total Volume 1300 mL; Urine Protein (24 Hour) 128.4 mg/dL (<11.9)
[2021-05-25 04:20] VITALS: BP 110/64; PULSE 96
[2021-05-25 04:21] VITALS: TEMP 36.7
[2021-05-25] MEDS: Heparin Injection (Vial) 5,000 UNIT/ML VIAL 5000 UNIT SC (05:52)
[2021-05-25 06:01] LABS: Bedside Glucose 120 mg/dL (70-110)
[2021-05-25 07:51] VITALS: BP 124/74; PULSE 71; TEMP 36.9; O2SAT 98
[2021-05-25 07:52] VITALS: BP 124/74; PULSE 69; PULSE 72; O2SAT 98
--- NOTE | 2021-05-25 07:57 | PCM.DC.BLA ---
Discharge Summary Date of Admission: 05/23/21 Date of Discharge: 05/25/21 Summary: Patient arrived on 05/23/2021 with headache. Previously diagnosed with preeclampsia without severe features. For prolonged blood pressure monitoring and symptom monitoring. Headache resolved with Tylenol. HELLP labs within normal limits. 24-hour urine protein started and completed, approximately 1600g of protein in 24 hours. Overall blood pressures nonsevere range, and patient remained asymptomatic. BPP within normal limits. Celestone given by Dr. Diamond Marcelino. GDM A2, insulin given in hospital elevated blood sugars after Celestone overall will be managed by insulin. Patient started on heparin 3 times daily in hospital, will continue at home. Patient is discharged home and follow-up in office early next week for blood pressure check. Patient understands signs and symptoms of pre-E, already takes at home blood pressures and understands parameters. Patient discharged home on 05/25/2021 Physical Exam Const alert, oriented x3, no apparent distress, average body habitus and no limitations Neck full ROM Resp normal respiratory effort, normal air movement, no retractions and no use of accessory muscles GI GI Narrative: Soft, nontender, gravid. Negative right upper quadrant pain Extremity normal to inspection and full ROM Neuro oriented x3 and deep tendon reflexes 2+ bilaterally Neuro Narrative: Negative clonus Psych mental status grossly normal, thought process normal, cooperative, affect normal and speech normal Meaningful Use Info Meaningful Use Diagnoses (Choose all that apply): None applicable Discharge Plan Admission Admit Date/Time: 05/23/21 20:51 Primary Reason for Your Visit: Headache Attending Provider: Angie Hoyos Primary Care Provider: Care Physician,Tiffanie Primary Instructions Additional Instructions / Restrictions: Regular diet. Routine activity. No heavy lifting over 25 pounds. Call if headache, visual changes, chest pain, shortness of breath, nausea vomiting, right upper quadrant pain. Follow-up within 1 week for blood pressure check and evaluation Discharge Orders/Prescriptions Prescriptions: No Action Vitamin C 1,000 mg Tablet Extended Release 1,000 mg PO DAILY RF: 0 omega-3 fatty acids Capsule 2,000 mg PO DAILY RF: 0 cholecalciferol (vitamin D3) [Vitamin D3] 125 mcg (5,000 unit) Tablet 500 mcg PO MO RF: 0 L.acid-L.rham-B.breve-S.therm 3 billion cell Tablet,Chewable 2 tab PO DAILY RF: 0 Mario-Inositol 2,000 mg PO/SL BID RF: 0 Progestrone 100 mg OTHER DAILY RF: 0 Smarty Pants 3 tab PO/SL BID RF: 0 crpbaegetx-bjluwwypurkaw-vtmk 50-325-40 mg Tablet 2 tab PO Q12H PRN PRN (Reason: Headache) Qty: 30 RF: 1 Referrals / Follow Up: Care Physician,No Primary [Primary Care Provider] - Disposition Disposition (needs filled in before D/C Order can be placed): Home, Self Care
--- NOTE | 2021-05-25 08:02 | PN.OBGYN_ITS ---
Subjective Subjective No overnight complaints. Denies headache, visual changes, chest pain, shortness of breath, nausea vomiting, right upper quadrant pain. Patient states good movement. Objective Data Objective Data Vital Signs: Vital Signs Temp Pulse BP Pulse Ox 98.5 F 72 124/74 H 98 05/25/21 07:51 05/25/21 07:52 05/25/21 07:52 05/25/21 07:52 Weight: 141 lb Body Mass Index (BMI) 28.5 Lab / Micro Data Result Diagrams: 05/23/21 10:15 05/23/21 10:15 Labs: Laboratory Results - last 24 hr 05/23/21 23:00: Urine Collection Time 24.0, Timed Urine Volume 1300, Ur Total Protein 24 Hr 1669.2 H, Urine Total Protein 128.4 H 05/24/21 11:59: POC Glucose 110 05/24/21 16:45: POC Glucose 123 H 05/24/21 22:06: POC Glucose 139 H 05/25/21 05:51: POC Glucose 120 H Micro: Microbiology 05/23/21 10:18 Nasal Secretion SARS-CoV-2 Antigen (Rapid) - Final Physical Exam Const alert, oriented x3, no apparent distress, average body habitus, healthy appearing and well nourished HEENT normocephalic Head and Scalp: atraumatic Face and Sinus: normal facial exam Eyes PERRL Neck full ROM Resp normal respiratory effort, no retractions and no use of accessory muscles GI GI Narrative: soft, nontender, gravid. Negative right upper quadrant pain Extremity normal to inspection, full ROM and no clubbing, cyanosis or edema Neuro deep tendon reflexes 2+ bilaterally Motor Exam: clonus absent Psych mental status grossly normal, affect normal, speech normal and activity/motor behavior normal Assessment & Plan (1) : PLAN: For prolonged evaluation of preeclampsia without severe features. Labs within normal limits. 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 Patient remains asymptomatic. Blood pressures nonsevere range for prolonged period of time greater than 24 hours. Patient previously given Celestone by Dr. Diamond Marcelino, now elevated blood sugars with GDM A2. Overall slightly elevated sugars can manage with insulin. Currently on heparin 3 times daily, will send home on heparin. Okay to discharge home, patient remains asymptomatic and blood pressures and labs remain preeclampsia without se lissa features. To follow-up in office early next week, patient already taking at home blood pressures and understands parameters signs and symptoms of preeclampsia.
--- NOTE | 2021-05-25 08:33 | NURSING ---
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
== END 2021-05-25 08:28 | disposition home or self-care (01) ==
LOC: WPOUT 21:09 → WP 21:09
PROVIDERS: Obstetrics & Gynecology; Admitting Provider Obstetrics & Gynecology; Visit Provider Obstetrics & Gynecology
DX: O14.93 Unspecified pre-eclampsia, third trimester (principal); O24.414 Gestational diabetes mellitus in pregnancy, insulin controlled; O09.513 Supervision of elderly primigravida, third trimester; O34.13 Maternal care for benign tumor of corpus uteri, third trimester; Z3A.34 34 weeks gestation of pregnancy; E73.9 Lactose intolerance, unspecified; D25.9 Leiomyoma of uterus, unspecified
CPT/HCPCS: 96374; 36415; 59025; 59050; 76815; 82247; 82360; 82565; 82962; 83615; 84156; 84450; 84460; 84550; 85027; 87426; 96372; 99218; J7120; A4216; G0378; J0702

== ENCOUNTER 2021-05-27 23:20 | Outpatient (CLI) | payer BC, SELFPAY ==
[2021-05-27 23:28] VITALS: BMI 28.8
[2021-05-27 23:38] VITALS: PULSE 71; O2SAT 96
[2021-05-27 23:41] VITALS: BP 142/87; PULSE 58
--- NOTE | 2021-05-27 23:52 | OB.TRI.NOTE ---
HPI - General General Date of Admission: 05/27/21 Date of Service: 05/27/21 HPI Narrative NATHALIE LUCIO, is a 40 F who presents headache Maternal Data Information CANDY Calculator Estimated Delivery Date Method Current WG Current Estimate 07/03/21 LMP (Certain) 35w 0d PFSH PFSH Medical History (Updated 05/29/21 @ 08:04 by Jocy Vaughan) Anxiety Asthma Back pain Irregular heart beat Migraine headache Non-smoker Pre-eclampsia Seizures Shortness of breath on exertion Sinus bradycardia by electrocardiogram Sinus pause Trauma Uterine fibroid Venous insufficiency of right leg Wears glasses Home Medications Mario-Inositol 2,000 mg PO/SL BID 08/31/20 [History Last Taken 05/28/21] Progestrone 100 mg OTHER DAILY 08/31/20 [History Last Taken 05/28/21 03:00] Smarty Pants 4 tab PO/SL DAILY 08/31/20 [History Last Taken 05/28/21 07:00] Vitamin C 1,000 mg PO DAILY 08/31/20 [History Last Taken 05/28/21 03:00] cholecalciferol (vitamin D3) [Vitamin D3] 500 mcg PO MO 08/31/20 [History Last Taken 05/21/21] omega-3 fatty acids 2,000 mg PO DAILY 08/31/20 [History Last Taken 05/27/21 03:00] insulin detemir U-100 [Levemir FlexTouch U-100 Insuln] 18 unit SUBCUT QHS 05/27/21 [History Last Taken 05/27/21 03:00] heparin (bovine) 5,000 units OTHER TID 05/28/21 [History Last Taken 05/29/21] Allergy/AdvReac Type Severity Reaction Status Date / Time ketoconazole Allergy Hives Verified 05/27/21 23:32 Sulfa (Sulfonamide Allergy Hives Verified 08/31/20 13:44 Antibiotics) triamcinolone Allergy Hives Verified 05/27/21 23:32 diphenhydramine AdvReac passed out Verified 08/31/20 13:44 [From Benadryl] lactose AdvReac Nausea/Vom/ Verified 08/31/20 13:44 Diarrhea Surgical History (Updated 05/23/21 @ 20:[address] Angie Marcelino MD) H/O dilation and curettage H/O laparoscopy History of hysteroscopy Social History Smoking Status: Former smoker History 1 Elective abortions Hx Para 0 Spontaneous abortions Hx # Term Pregnancies Ectopic pregnancies Hx # Pregnancies Multiple births # of living children NST FHR Rate Baby A Baseline: 130 Variability:: Moderate Accelerations:: 15 x 15 Decelerations:: None NST Reactive:: Yes Uterine Activity:: Quiet Assessment & Plan (1) : PLAN: Patient arrives with headache, and at home elevated blood pressures. With known preeclampsia without severe features. Headache resolved with Tylenol. Nonsevere range blood pressures. HELLP labs wnl. All reassuring. Okay to discharge home and follow-up scheduled appointments. Patient already taken at home blood pressures and understands parameters
[2021-05-28 00:09] VITALS: BP 152/84; PULSE 62
[2021-05-28] MEDS: Acetaminophen 500 MG Tablet 1000 MG PO (00:33)
[2021-05-28 00:42] LABS: Absolute Lymphocyte Count 2.25 X10^3/uL (0.83-4.51); Absolute Neutrophil Count 6.7 X10^3/uL (2.0-7.7); Basophil# 0.02 X10^3/uL; Basophil% 0.2 % (0-1); Eosinophil# 0.05 X10^3/uL; Eosinophils% 0.5 % (0-5); Hematocrit 36.9 % (37-47); Hemoglobin 13.7 g/dL (12.0-15.0); Lymphocyte # 2.25 X10^3/ul (0.83-4.51); Lymphocyte % 22.3 % (19-41); Mean Corp Hgb Conc 37.1 g/dL (32-36); Mean Corpuscular Hgb 33.2 pg (27.0-32.0); Mean Corpuscular Volume 89.3 fL (81-99); Mean Platelet Vol. 11.4 fl (6.2-12.0); Monocyte# 0.97 X10^3/uL; Monocyte% 9.6 % (0-10); Neutrophil # 6.69 X10^3/uL (2.7-7.7); Neutrophil % 66.1 % (47-70); Platelet Count 228 K/mm3 (150-450); RBC Distribution Width CV 13.1 % (11.6-14.6); RBC Distribution Width SD 42.3 fl (35.1-43.9); Red Blood Count 4.13 M/mm3 (4.2-5.4); White Blood Count 10.1 K/mm3 (4.4-11.0)
[2021-05-28 00:50] VITALS: BP 153/78; PULSE 66
[2021-05-28 01:20] VITALS: BP 149/73; PULSE 65
[2021-05-28 01:22] LABS: ALB/GLOB Ratio 0.6 RATIO (0.9-2.4); AST(SGOT) 24 U/L (15-37); Alanine Aminotransfer ALT/SGPT 26 U/L (13-56); Albumin, Serum 2.2 g/dL (3.2-5.0); Alkaline Phosphatase 130 U/L (45-117); Anion Gap 10 (5-15); BUN 19 mg/dL (7-18); BUN/Creat Ratio 24.7 RATIO (10-20); Calcium,Total 8.7 mg/dL (8.5-10.1); Chloride 105 mmol/L (98-107); Creatinine, Serum 0.77 mg/dL (0.55-1.02); EST Glomerular Filtration Rate 89 mL/min (>60); Est Glom Filt Rate - Afr Amer 108 mL/min (>60); Estimated Creatinine Clearance 101.15 ml/min; Globulin 3.5 g/dL (2.2-4.2); Glucose 103 mg/dL (74-106); LDH 242 U/L (84-246); Potassium 3.8 mmol/L (3.5-5.1); Protein, Total 5.7 g/dL (6.4-8.2); Sodium Level 136 mmol/L (136-145)
== END 2021-05-28 02:00 | disposition home or self-care (01) ==
LOC: WPOUT 23:26 → WP 23:27
PROVIDERS: Visit Provider Obstetrics & Gynecology
DX: O99.891 Other specified diseases and conditions complicating pregnancy (principal); R51.9 Headache, unspecified; Z87.891 Personal history of nicotine dependence; Z3A.35 35 weeks gestation of pregnancy
CPT/HCPCS: 59025; 59050; 80053; 83615; 85025; 99218; G0378

== ENCOUNTER 2021-05-29 04:55 | Inpatient (IN) | payer BC, SELFPAY ==
[2021-05-29] VITALS (199 sets, daily range): BP systolic 117–184; BP diastolic 67–112; PULSE 73–97; RESP 16–18; TEMP 35.9–37.1; O2SAT 93–100; BMI 28.6
[2021-05-29] MEDS: Mag Hydrox/Al Hydrox/Simeth 30 ML UDC PO (02:11)
[2021-05-29] MEDS: Acetaminophen 500 MG Tablet 1000 MG PO (02:11)
[2021-05-29 02:30] LABS: Bedside Glucose 107 mg/dL (70-110)
[2021-05-29 02:46] LABS: Absolute Lymphocyte Count 2.21 X10^3/uL (0.83-4.51); Absolute Neutrophil Count 5.6 X10^3/uL (2.0-7.7); Basophil# 0.02 X10^3/uL; Basophil% 0.2 % (0-1); Eosinophil# 0.06 X10^3/uL; Eosinophils% 0.7 % (0-5); Hematocrit 37.6 % (37-47); Hemoglobin 12.8 g/dL (12.0-15.0); Lymphocyte # 2.21 X10^3/ul (0.83-4.51); Lymphocyte % 25.3 % (19-41); Mean Corpuscular Hgb 30.4 pg (27.0-32.0); Mean Corpuscular Volume 89.3 fL (81-99); Mean Platelet Vol. 11.5 fl (6.2-12.0); Monocyte# 0.73 X10^3/uL; Monocyte% 8.4 % (0-10); NRBC Flagged by Analyzer 0.5 % (0-5); Neutrophil # 5.61 X10^3/uL (2.7-7.7); Neutrophil % 64.1 % (47-70); Platelet Count 210 K/mm3 (150-450); RBC Distribution Width CV 13.3 % (11.6-14.6); RBC Distribution Width SD 43.3 fl (35.1-43.9); Red Blood Count 4.21 M/mm3 (4.2-5.4); White Blood Count 8.7 K/mm3 (4.4-11.0)
[2021-05-29 03:10] LABS: ALB/GLOB Ratio 0.6 RATIO (0.9-2.4); AST(SGOT) 22 U/L (15-37); Alanine Aminotransfer ALT/SGPT 19 U/L (13-56); Alkaline Phosphatase 125 U/L (45-117); Anion Gap 10 (5-15); BUN 21 mg/dL (7-18); BUN/Creat Ratio 28.6 RATIO (10-20); Calcium,Total 8.8 mg/dL (8.5-10.1); Chloride 106 mmol/L (98-107); Creatinine, Serum 0.73 mg/dL (0.55-1.02); EST Glomerular Filtration Rate 94 mL/min (>60); Est Glom Filt Rate - Afr Amer 114 mL/min (>60); Estimated Creatinine Clearance 106.25 ml/min; Globulin 3.4 g/dL (2.2-4.2); Glucose 116 mg/dL (74-106); LDH 263 U/L (84-246); Potassium 3.9 mmol/L (3.5-5.1); Protein, Total 5.4 g/dL (6.4-8.2); Sodium Level 136 mmol/L (136-145)
[2021-05-29] MEDS: Labetalol (Prefilled) 20 MG/4 ML IV (05:06)
[2021-05-29] MEDS: Lactated Ringers 1,000 ML 50 ML IV (05:06)
[2021-05-29] MEDS: Magnesium Sulfate 4gm/100mL 4 GM/100 ML IV.SOLN. IV (05:10)
[2021-05-29] MEDS: Magnesium Sulfate 4gm/100mL 2 GM/50 ML IV.SOLN. IV (05:33)
[2021-05-29] MEDS: Magnesium Sulfate 20 GM/500 ML BAG IV ×2 (05:45→15:50)
[2021-05-29] MEDS: miSOPROStol 25 MCG TABLET VAGINAL ×2 (06:21→10:18)
[2021-05-29] MEDS: Labetalol (Prefilled) 20 MG/4 ML 40 MG IV (06:57)
[2021-05-29 07:15] LABS: Group B Strep DNA By PCR Negative (Negative); Internal Control PASS; Probe Check PASS; Specimen Processing Control PASS
[2021-05-29 07:36] LABS: Bedside Glucose 112 mg/dL (70-110)
[2021-05-29] MEDS: Labetalol 200 MG Tablet 400 MG PO ×2 (08:22→21:03)
--- NOTE | 2021-05-29 08:31 | HP.PCM.OB_ITS ---
History and Physical Date of Admission: 05/29/21 HPI: 40-year-old G1, P0 at 35/0 weeks, CANDY 07/03/2021 by 12-week ultrasound, admitted for induction of labor for preeclampsia with severe features. Patient presented overnight in triage with mild headache pain 2 out of 10. Headache improved to 1 out of 10 with Tylenol. She was found to have persistently elevated severe range blood pressures. Patient received 20 mg followed by 40 mg of IV labetalol for blood pressure control. Denies vision changes, chest pain, shortness of breath, nausea or vomiting, right upper quadrant pain, diarrhea or constipation, fevers or chills. complicated by: Preeclampsia with severe features based on severe range blood pressures, GDMA2, resolved low-lying placenta, history of vasovagal syncope (evaluated by neurology and cardiology), advanced maternal age, history of nephrolithiasis. [employer] history: G1 current Medical history: 1. history of vasovagal syncope (evaluated by neurology and cardiology) 2. history of nephrolithiasis. Surgical history: 1. Hysteroscopy, polypectomy Medications: 1. Fish oil 2. vitamin 3. Vitamin C 4. Levemir nightly Allergies: 1. Benadryl --> unconsciousness 2. Ketoconazole --> hives/rash 3. Sulfa --> hives/rash 4. Triamcinolone --> dermatitis Family history: Noncontributory Social history: Denies tobacco, alcohol, drug use Review of systems: Negative otherwise stated as above Physical exam: Vitals: General: No acute distress HEENT: Normocephalic/atraumatic, PERRLA Cardiac: Regular rate and rhythm Respiratory: Clear to auscultation bilaterally Abdomen: Soft, nontender, gravid, no right upper quadrant pain Extremities: No edema Musculoskeletal: Range of motion normal, strength 5 out of 5 throughout all extremities Neurologic: Cranial nerves II through XII grossly intact, patellar reflexes 2/4 bilateral, no clonus CE: 1 cm per RN panel: A- HIV negative Hepatitis B/hepatitis C both negative Syphilis nonreactive Gonorrhea/chlamydia negative Rapid GBS negative on 05/29 Labs today: Within normal limits FHR: 135/mod emeka/+accel/no decel [place]: quiet Assessment/plan: 40-year-old G1, P0 at 35/0 weeks, CANDY 07/03/2021 by 12-week ultrasound, admitted for induction of labor for preeclampsia with severe features. complicated by: Preeclampsia with severe features based on severe range blood pressures, GDMA2, resolved low-lying placenta, history of vasovagal syncope (evaluated by neurology and cardiology), advanced maternal age, history of nephrolithiasis. 1. Admit to labor and delivery 2. IV labetalol 20 mg and 40 mg given for severe range blood pressure. Start magnesium sulfate 6 g bolus followed by 2 g/h. Follow with neuro checks. 3. Cytotec 25 mcg vaginally every 4 hours for induction of labor 4. Rapid GBS negative, however patient is and would recommend penicillin prophylaxis 5. GDM A2. Routine orders 6. History of vasovagal syncope 7. Advance maternal age
--- NOTE | 2021-05-29 08:35 | OB.TRI.NOTE ---
HPI - General General Date of Admission: 05/27/21 Date of Service: 05/27/21 Chief Complaint: Headache HPI Narrative NATHALIE LUCIO, is a 40 F who presents with headache Maternal Data Information CANDY Calculator Estimated Delivery Date Method Current WG Current Estimate 07/03/21 LMP (Certain) 35w 0d PFSH PFSH Medical History (Updated 05/29/21 @ 08:04 by Jocy Vaughan) Anxiety Asthma Back pain Irregular heart beat Migraine headache Non-smoker Pre-eclampsia Seizures Shortness of breath on exertion Sinus bradycardia by electrocardiogram Sinus pause Trauma Uterine fibroid Venous insufficiency of right leg Wears glasses Home Medications Mario-Inositol 2,000 mg PO/SL BID 08/31/20 [History Last Taken 05/28/21] Progestrone 100 mg OTHER DAILY 08/31/20 [History Last Taken 05/28/21 03:00] Smarty Pants 4 tab PO/SL DAILY 08/31/20 [History Last Taken 05/28/21 07:00] Vitamin C 1,000 mg PO DAILY 08/31/20 [History Last Taken 05/28/21 03:00] cholecalciferol (vitamin D3) [Vitamin D3] 500 mcg PO MO 08/31/20 [History Last Taken 05/21/21] omega-3 fatty acids 2,000 mg PO DAILY 08/31/20 [History Last Taken 05/27/21 03:00] insulin detemir U-100 [Levemir FlexTouch U-100 Insuln] 18 unit SUBCUT QHS 05/27/21 [History Last Taken 05/27/21 03:00] heparin (bovine) 5,000 units OTHER TID 05/28/21 [History Last Taken 05/29/21] Allergy/AdvReac Type Severity Reaction Status Date / Time ketoconazole Allergy Hives Verified 05/27/21 23:32 Sulfa (Sulfonamide Allergy Hives Verified 08/31/20 13:44 Antibiotics) triamcinolone Allergy Hives Verified 05/27/21 23:32 diphenhydramine AdvReac passed out Verified 08/31/20 13:44 [From Benadryl] lactose AdvReac Nausea/Vom/ Verified 08/31/20 13:44 Diarrhea Surgical History (Updated 05/23/21 @ 20:[address] Angie Marcelino MD) H/O dilation and curettage H/O laparoscopy History of hysteroscopy Social History Smoking Status: Former smoker History 1 Elective abortions Hx Para 0 Spontaneous abortions Hx # Term Pregnancies Ectopic pregnancies Hx # Pregnancies Multiple births # of living children NST FHR Rate Baby A Baseline: 130 Variability:: Moderate Accelerations:: 15 x 15 Decelerations:: None NST Reactive:: Yes Uterine Activity:: quiet Assessment & Plan (1) : PLAN: Patient arrives with headache and at home elevated blood pressures. Patient with known preeclampsia without severe features. Here given Tylenol headache resolved. Blood pressures all nonsevere range on no medications. HELLP labs wnl. All reassuring. Okay to discharge home and follow-up at scheduled appointments. Already taken at home blood pressures and understands parameters
[2021-05-29 10:35] LABS: Bedside Glucose 98 mg/dL (70-110)
[2021-05-29 12:51] LABS: Bedside Glucose 101 mg/dL (70-110)
[2021-05-29 14:11] LABS: Bedside Glucose 90 mg/dL (70-110)
[2021-05-29] MEDS: miSOPROStol 50 MCG TABLET VAGINAL (15:41)
[2021-05-29 17:09] LABS: Absolute Neutrophil Count 8.8 X10^3/uL (2.0-7.7); Basophil# 0.03 X10^3/uL; Basophil% 0.3 % (0-1); Eosinophil# 0.04 X10^3/uL; Eosinophils% 0.3 % (0-5); Hematocrit 41.2 % (37-47); Hemoglobin 14.7 g/dL (12.0-15.0); Lymphocyte % 17.6 % (19-41); Mean Corp Hgb Conc 35.7 g/dL (32-36); Mean Corpuscular Hgb 31.2 pg (27.0-32.0); Mean Corpuscular Volume 87.5 fL (81-99); Monocyte# 0.84 X10^3/uL; NRBC Flagged by Analyzer 0 % (0-5); Neutrophil # 8.84 X10^3/uL (2.7-7.7); Platelet Count 214 K/mm3 (150-450); RBC Distribution Width CV 13.3 % (11.6-14.6); RBC Distribution Width SD 41.8 fl (35.1-43.9); Red Blood Count 4.71 M/mm3 (4.2-5.4)
[2021-05-29 17:49] LABS: ALB/GLOB Ratio 0.5 RATIO (0.9-2.4); AST(SGOT) 12 U/L (15-37); Alanine Aminotransfer ALT/SGPT 17 U/L (13-56); Albumin, Serum 2.3 g/dL (3.2-5.0); Alkaline Phosphatase 135 U/L (45-117); Anion Gap 11 (5-15); BUN 15 mg/dL (7-18); BUN/Creat Ratio 23.6 RATIO (10-20); Calcium,Total 7.8 mg/dL (8.5-10.1); Chloride 101 mmol/L (98-107); Creatinine, Serum 0.64 mg/dL (0.55-1.02); EST Glomerular Filtration Rate 111 mL/min (>60); Est Glom Filt Rate - Afr Amer 134 mL/min (>60); Estimated Creatinine Clearance 121.19 ml/min; Globulin 4.2 g/dL (2.2-4.2); Glucose 92 mg/dL (74-106); LDH 224 U/L (84-246); Protein, Total 6.5 g/dL (6.4-8.2); Sodium Level 132 mmol/L (136-145)
[2021-05-29] MEDS: Lactated Ringers 500 ML 999 ML IV (18:00)
[2021-05-29 18:31] LABS: Bedside Glucose 88 mg/dL (70-110)
[2021-05-29] MEDS: fentaNYL-bupivacaine (epidural) 100 ML BAG EPIDURAL (19:23)
--- NOTE | 2021-05-29 20:51 | PN_ITS ---
Progress Note LABOR PROGRESS NOTE Reports feeling pressure. She is more comfortable with epidural. AVSS GEN - NAD, AAO x 3 SVE 9/90/0, cephalic FHR 140, moderate variability, + acceleration, + variable deceleration TOCO 3-4/10 min Assessment & Plan Assessment/Plan (1) Pre-eclampsia affecting , antepartum: PLAN: Severe features BP stable on PO Labetalol - continue Labs stable Na low, switch fluids to NS (2) 35 weeks gestation of : PLAN: Post betamethasone last week Anticipate (3) Gestational diabetes mellitus: QUALIFIERS: Gestational diabetes mellitus control: insulin- controlled Trimester: third trimester Qualified Code(s): O24.414 - Gestational diabetes mellitus in , insulin controlled PLAN: well controlled
[2021-05-29 21:00] LABS: Bedside Glucose 88 mg/dL (70-110)
[2021-05-29] MEDS: 0.9% Normal Saline 1,000 ML 50 ML IV (21:03)
[2021-05-29 22:20] LABS: Bedside Glucose 116 mg/dL (70-110)
[2021-05-30] VITALS (90 sets, daily range): BP systolic 112–141; BP diastolic 58–89; PULSE 76–108; RESP 12–18; TEMP 36.2–37.3; O2SAT 93–99
[2021-05-30 00:26] LABS: Bedside Glucose 116 mg/dL (70-110)
[2021-05-30 00:26] LABS: Bedside Glucose 111 mg/dL (70-110)
--- NOTE | 2021-05-30 02:30 | PN_ITS ---
Subjective Subjective LABOR PROGRESS NOTE Patient doing well. Denies sx of preeclampsia GEN - NAD, AAO x 3 FHR 130, moderate variability, no accelerations, + variable decelerations TOCO 2-3/10 min - FD/+1 station Objective Data Objective Data Vital Signs: Vital Signs Temp Pulse Resp BP Pulse Ox 97.7 F L 83 16 141/67 H 93 05/30/21 03:27 05/30/21 03:34 05/30/21 03:27 05/30/21 03:27 05/30/21 03:34 Oxygen Delivery Method Room Air Weight: 64.41 kg Body Mass Index (BMI) 28.6 Intake & Output: Intake and Output for Last 24 Hours 05/28/21 05/29/21 05/30/21 23:59 23:59 23:59 Intake Total 2955.33 / 2955.33 566.67 / 566.67 Output Total 2400 / 2400 325 / 325 Balance 555.33 / 555.33 241.67 / 241.67 Lab / Micro Data Result Diagrams: 05/29/21 16:55 05/29/21 16:55 Labs: Laboratory Results - last 24 hr 05/29/21 02:20: Blood Type A NEGATIVE, Antibody Screen NEGATIVE 05/29/21 05:30: Group B Strep DNA Negative, Specimen Comment Not Reportable 05/29/21 06:29: POC Glucose 112 H 05/29/21 10:17: POC Glucose 98 05/29/21 12:40: POC Glucose 101 05/29/21 14:06: POC Glucose 90 05/29/21 16:55: WBC 12.0 H, RBC 4.71, Hgb 14.7, Hct 41.2, MCV 87.5, MCH 31.2, MCHC 35.7, RDW Std Deviation 41.8, RDW Coeff of Andrew 13.3, Plt Count 214, MPV 11.0, Immature Gran % (Auto) 0.800, Neut % (Auto) 74.0 H, Lymph % (Auto) 17.6 L, [place] % (Auto) 7.0, Eos % (Auto) 0.3, Baso % (Auto) 0.3, Absolute Neuts (auto) 8.8 H, Absolute Lymphs (auto) 2.10, Nucleated RBC % 0 05/29/21 16:55: Sodium 132 L, Potassium 4.0, Chloride 101, Carbon Dioxide 20.0 L , Anion Gap 11, BUN 15, Creatinine 0.64, Estim Creat Clear Calc 121.19, Est GFR (MDRD) Af Amer 134, Est GFR (MDRD) Non-Af 111, BUN/Creatinine Ratio 23.6 H, Glucose 92, Calcium 7.8 L, Total Bilirubin 0.30, AST 12 L, ALT 17, Alkaline Phosphatase 135 H, Lactate Dehydrogenase 224, Total Protein 6.5, Albumin 2.3 L, Globulin 4.2, Albumin/Globulin Ratio 0.5 L 05/29/21 18:13: POC Glucose 88 05/29/21 20:57: POC Glucose 88 05/29/21 22:00: POC Glucose 116 H 05/29/21 23:08: POC Glucose 116 H 05/30/21 00:17: POC Glucose 111 H 05/30/21 01:21: POC Glucose 108 05/30/21 02:21: POC Glucose 118 H Micro: Microbiology 05/29/21 05:30 Nasal Secretion SARS-CoV-2 Antigen (Rapid) - Final Assessment & Plan Assessment/Plan (1) Prolonged rupture of membranes: PLAN: Ampicillin for GBS ppx (2) 35 weeks gestation of : PLAN: Pushing > 2 hours Pitocin ordered (3) Pre-eclampsia affecting , antepartum: PLAN: No si/sx worsening (4) Gestational diabetes mellitus: QUALIFIERS: Gestational diabetes mellitus control: insulin- controlled Trimester: third trimester Qualified Code(s): O24.414 - Gestational diabetes mellitus in , insulin controlled
[2021-05-30] MEDS: Magnesium Sulfate 20 GM/500 ML BAG IV (03:09)
[2021-05-30 03:21] LABS: Bedside Glucose 108 mg/dL (70-110)
[2021-05-30 03:21] LABS: Bedside Glucose 118 mg/dL (70-110)
[2021-05-30] MEDS: Acetaminophen 500 MG Tablet PO ×2 (04:12→19:39)
--- NOTE | 2021-05-30 05:20 | PLAC_PTH ---
PATIENT: NATHALIE LUCIO LOC: [facility] U#:[id number] AGE/SX: 40/F ROOM: WP014 RE05/29/[address]: Dr. Jasmin Luo DO : 1980 BED: 1 DIS: 06/02/2021 SPEC #: [id number] RECD: 05/30/21 08:51 STATUS: JEAN MARIE RERolly #: [id number] ROSALIE: 05/30/21 05:[address]: Jasmin Luo DEPT: SURGICAL PATHOLOGY RECD BY: Nedra Quiles ENTERED: 05/30/21 08:51 SP TYPE: PLACENTA OTHR DR: No Primary Care Phys Tissues: Placenta, NOS Procedures: Surgery Specimen Level V HEADER OPERATION: Vaginal delivery PRE-OP DIAGNOSIS: Induction TISSUE SUBMITTED: Placenta MICROSCOPIC DIAGNOSIS Placenta: Placental disc - third trimester placenta (365 gm). - A focal area of intraparenchymal hemorrhage (2 cm in greatest dimension). Membranes - no pathologic diagnosis. Umbilical cord - three blood vessels and no pathologic diagnosis. J CARLOS:jeffery 06/01/2021 MICROSCOPIC DESCRIPTION Slides are reviewed. GROSS DESCRIPTION SPECIMEN: PLACENTA / CLINICAL INFORMATION: A. Weight: 2.1 kg B. Gestational Age: 35 weeks C. Sex: Female PLACENTAL WEIGHT (POST FIXATION): 365 gm PLACENTAL DIMENSIONS: 16 x 13 x 3 cm PLACENTAL SHAPE: Usual ovoid PLACENTAL WEIGHT FOR GESTATIONAL AGE: Within 10-99th percentile MEMBRANES - Present A. Insertion: Marginal B. Site of rupture from edge: At edge of placental disc C. Color of membrane: Viveros-lee D. Abnormalities: None UMBILICAL CORD - Present A. Color: Viveros-lee B. Insertion: Marginal C. Length: 40 cm D. Diameter: Up to 1.5 cm E. Number of vessels: Three F. Abnormalities: None PLACENTAL DISC - Present A. Color of surface: Viveros-lee B. surface abnormalities: None C. Maternal cotyledons: Intact with minimal tears D. Attached retro placental clot: No clot E. Cut surface: Dark red and spongy F. Lesions: Sections reveal a hemorrhagic lesion measuring 2 cm in greatest dimension. G. Separate clot: Absent SECTIONS SUBMITTED: 1. Membrane roll 2. Cord, maternal end 3. Cord, end 4. Placental disc, and maternal surfaces, lesion 5. Placental disc, and maternal surfaces 6. Placental disc, and maternal surfaces SJ:jeffery 05/31/2021 TC:5 CPT: 45888
[2021-05-30] MEDS: Oxytocin 30 units/NS 500 ml 30 UNITS/500 ML IV.SOLN 999 UNITS IV (05:23)
[2021-05-30] MEDS: miSOPROStol 200 MCG Tablet 800 MCG RC (05:27)
[2021-05-30 05:41] LABS: Bedside Glucose 106 mg/dL (70-110)
[2021-05-30 05:41] LABS: Bedside Glucose 137 mg/dL (70-110)
--- NOTE | 2021-05-30 05:52 | OP.PCM_ITS ---
Assessment & Plan (1) 35 weeks gestation of : (2) Prolonged rupture of membranes: (3) Pre-eclampsia affecting , antepartum: PLAN: Continue magnesium (4) Gestational diabetes mellitus: QUALIFIERS: Gestational diabetes mellitus control: insulin- controlled Trimester: third trimester Qualified Code(s): O24.414 - Gestational diabetes mellitus in , insulin controlled (5) Vacuum-assisted vaginal delivery: Maternal Data Information CANDY Calculator Estimated Delivery Date Method Current WG Current Estimate 07/03/21 LMP (Certain) 35w 3d Vaginal Delivery Maternal Presentation Maternal Presentation: Medically Indicated Induction Type of Induction: Cytotec Medical Reason for Induction: - (Preeclampsia with severe features) Operative Information Date of Procedure: 05/30/21 Pre-Operative Diagnosis: 1. 35 1/7 weeks gestation 2. Preeclampsia with severe features 3. Gestational diabetes mellitus, insulin controlled 4. Prolonged second stage Post-Operative Diagnosis: 1. 35 1/7 weeks gestation 2. Preeclampsia with severe features 3. Gestational diabetes mellitus, insulin controlled 4. Prolonged second stage Surgery / Procedure Performed: Vacuum Assisted Vaginal Delivery Type of Anesthesia: Epidural Anesthesiologist: Kristine Moreira Drain: Cavazos to straight drain Estimated Blood Loss: 400 ml Time of Delivery: 05:20 Findings Description of Procedure: Patient was fully dilated and +3 station after pushing more than 4 hours with good maternal effort and descent. Her contractions had spaced out to approximately 1 every 10 minutes and heart rate was category 2 with minimal variability. She did not meet the institutional policy for Pitocin administration we proceeded with nipple stimulation with increased frequency of contractions. At this time I advised vacuum assistance given regular rate of contractions and prolonged second stage. Reviewed with patient and her vacuum associated risks, benefits, indications and alternatives. Patient agreed to proceed. Fetus was in FESTUS. The vacuum was placed at the fl exion point and 500 mmHg suction applied. 5 pulls were performed over 5 contractions with no pop offs with delivery of the head. The suction was released and the nuchal cord was reduced x1. The infant mouth and nares were bulb suctioned at the perineum. shoulders delivered to reveal a female . The was placed on the maternal abdomen further attended by nursery personnel. The cord was doubly clamped and cut and she is taken to the stable lip for further evaluation by the pediatric hospitalist and recess team. The placenta delivered spontaneously and appeared intact on inspection. The uterus was atonic with brisk bleeding without hemorrhage. This was controlled following intrauterine exam with evacuation of clot, vigorous bimanual uterine massage, IV Pitocin administration and Cytotec also was placed 800 mcg per rectum. A second-degree perineal laceration was repaired using 3-0 Vicryl Rapide. There was good hemostasis. Venous cord gas was unable to be collected, however, arterial gas was obtained. Sponge and needle counts correct x 2. Apgars 2 and 8 Presentation: Vertex Amniotic Membrane Rupture Type: Spontaneous Amniotic Fluid Description: Clear Placental Delivery Description: Spontaneous Placenta Disposition: [facility] Specimen(s) Removed: placenta Cord Vessel Description: 3 Vessels Cord Entanglement: Around neck x 1, loose Cord Gases: ABG Infant A Gender: Female Delayed Cord Clamping: No Post Vaginal Delivery Medications Given After Delivery: IV Pitocin Episiotomy Description: None Laceration: 2nd degree Complication Complications: None
[2021-05-30] MEDS: 0.9% Normal Saline 1,000 ML 50 ML IV (05:54)
[2021-05-30 06:56] LABS: Bedside Glucose 112 mg/dL (70-110)
[2021-05-30] MEDS: Ibuprofen 600 MG Tablet PO ×2 (08:47→16:38)
[2021-05-30] MEDS: Labetalol 200 MG Tablet 400 MG PO (11:32)
[2021-05-30] MEDS: Labetalol 200 MG Tablet PO (21:56)
[2021-05-31] VITALS (9 sets, daily range): BP systolic 107–127; BP diastolic 59–70; PULSE 75–92; RESP 16–18; TEMP 36.6–36.8; O2SAT 96–100
[2021-05-31] MEDS: Ibuprofen 600 MG Tablet PO ×3 (02:54→16:04)
[2021-05-31] MEDS: Acetaminophen 500 MG Tablet PO ×3 (02:54→16:03)
[2021-05-31] MEDS: Benzocaine/Lanolin/Aloe Vera 1 SPRAY EACH TOPICAL (05:56)
[2021-05-31 06:16] LABS: Bedside Glucose 140 mg/dL (70-110)
--- NOTE | 2021-05-31 07:43 | PCM.PN.OB ---
Subjective Subjective Patient without complaints. Denies any PIH symptoms and blood pressures normal despite decreasing labetalol dose to one half. Minimal vaginal bleeding. Breast-feeding going well but she is supplementing with donated breastmilk. Baby will probably need to stay in the nursery for a few more days. Objective Data Objective Data Vital Signs: Vital Signs Temp Pulse Resp BP Pulse Ox 98.2 F 85 18 107/59 L 96 05/31/21 00:40 05/31/21 05:24 05/31/21 00:40 05/31/21 05:24 05/31/21 00:43 Oxygen Delivery Method Room Air Weight: 142 lb Body Mass Index (BMI) 28.6 Intake & Output: Intake and Output for Last 24 Hours 05/29/21 05/30/21 05/31/21 23:59 23:59 23:59 Intake Total 2955.33 / 2955.33 3694.34 / 3694.34 Output Total 2400 / 2400 3450 / 3450 Balance 555.33 / 555.33 244.34 / 244.34 Lab / Micro Data Result Diagrams: 05/29/21 16:55 05/29/21 16:55 Labs: Laboratory Results - last 24 hr 05/31/21 06:00: POC Glucose 140 H Micro: Microbiology 05/29/21 05:30 Nasal Secretion SARS-CoV-2 Antigen (Rapid) - Final Assessment & Plan (1) Pre-eclampsia affecting , antepartum: (2) 35 weeks gestation of : PLAN: Doing well day #1 status post routine spontaneous vaginal delivery. 90 cm sulfate stopped last p.m. Blood sugars noted. Will again decrease labetalol at this time 200 mg twice daily. Anticipate discharge tomorrow if good progress continues.
[2021-05-31] MEDS: Labetalol 100 MG Tablet PO ×2 (09:56→22:18)
[2021-06-01] VITALS (10 sets, daily range): BP systolic 130–142; BP diastolic 65–84; PULSE 85–112; RESP 16–18; TEMP 36.6–37.1; O2SAT 95–99
[2021-06-01] MEDS: Ibuprofen 600 MG Tablet PO ×2 (08:33→18:29)
--- NOTE | 2021-06-01 09:46 | PCM.PN.OB ---
Subjective Subjective Resting quietly after not sleeping during the night. Will see patient later in the day. Objective Data Objective Data Vital Signs: Vital Signs Temp Pulse Resp BP Pulse Ox 98.5 F 112 H 16 130/65 H 98 06/01/21 01:40 06/01/21 01:40 06/01/21 01:40 06/01/21 01:40 05/31/21 13:46 Oxygen Delivery Method Room Air Weight: 142 lb Body Mass Index (BMI) 28.6 Intake & Output: Intake and Output for Last 24 Hours 05/30/21 05/31/21 06/01/21 23:59 23:59 23:59 Intake Total 3694.34 / 3694.34 Output Total 3450 / 3450 Balance 244.34 / 244.34 Lab / Micro Data Result Diagrams: 05/29/21 16:55 05/29/21 16:55 Micro: Microbiology 05/29/21 Unknown Genital vaginal Group B Streptococcus Culture - Final Group B Beta Streptococcus is not isolated. 05/29/21 05:30 Nasal Secretion SARS-CoV-2 Antigen (Rapid) - Final
--- NOTE | 2021-06-01 13:25 | PCM.PN.OB ---
Subjective Subjective Denies headache, vision changes, abdominal pain, SOB. Feels better after she had some sleep. She is . Voiding well and had a bowel movement since delivery. Objective Data Objective Data Vital Signs: Vital Signs Temp Pulse Resp BP Pulse Ox 98.7 F 93 18 138/78 H 98 06/01/21 15:32 06/01/21 15:32 06/01/21 15:32 06/01/21 15:32 05/31/21 13:46 Oxygen Delivery Method Room Air Weight: 64.41 kg Body Mass Index (BMI) 28.6 Intake & Output: Intake and Output for Last 24 Hours 05/30/21 05/31/21 06/01/21 23:59 23:59 23:59 Intake Total 3694.34 / 3694.34 Output Total 3450 / 3450 Balance 244.34 / 244.34 Lab / Micro Data Result Diagrams: 05/29/21 16:55 05/29/21 16:55 Micro: Microbiology 05/29/21 Unknown Genital vaginal Group B Streptococcus Culture - Final Group B Beta Streptococcus is not isolated. 05/29/21 05:30 Nasal Secretion SARS-CoV-2 Antigen (Rapid) - Final Physical Exam Const alert, oriented x3 and no apparent distress Resp normal respiratory effort, normal air movement and clear to auscultation bilaterally Cardio regular rate, regular rhythm, S1 normal heart sound and S2 normal heart sound Narrative: lochia scant Uterus Palpation: uterus fundus firm and other OB fundus nontender Extremity no calf tenderness Extremity Narrative: +2 b/l pedal edema to calf Neuro oriented x3 Assessment & Plan (1) Vacuum-assisted vaginal delivery: PLAN: Rh neg, infant also Rh neg , support consultation (2) Pre-eclampsia affecting , antepartum: PLAN: BPs normalized Continue Labetalol 100mg po bid Observe through PPD#3 given severe preeclampsia Plan for d/c home tomorrow
[2021-06-01 15:21] LABS: Pathology Specimen OB SEE PATHOLOGY REPORT
[2021-06-01] MEDS: Labetalol 100 MG Tablet PO ×2 (15:43→23:30)
[2021-06-02 03:34] VITALS: BP 141/79; PULSE 92; RESP 18; TEMP 36.6; O2SAT 93; O2SAT 94
[2021-06-02 03:35] VITALS: BP 141/79; PULSE 94
[2021-06-02] MEDS: Acetaminophen 500 MG Tablet PO (03:38)
--- NOTE | 2021-06-02 07:31 | PN.OBGYN_ITS ---
Subjective Subjective Patient without complaints. Feeling much better after sleeping more yesterday. Minimal vaginal bleeding. Denies any PIH symptoms. Blood pressures edged up overnight so we will increase labetalol to 200 twice daily for home use. Awaiting pediatric decision as to whether baby is able to go home today as there have been some bilirubin issues. Objective Data Objective Data Vital Signs: Vital Signs Temp Pulse Resp BP Pulse Ox 97.9 F 94 18 141/79 H 94 06/02/21 03:34 06/02/21 03:35 06/02/21 03:34 06/02/21 03:35 06/02/21 03:34 Oxygen Delivery Method Room Air Weight: 142 lb Body Mass Index (BMI) 28.6 Lab / Micro Data Result Diagrams: 05/29/21 16:55 05/29/21 16:55 Micro: Microbiology 05/29/21 Unknown Genital vaginal Group B Streptococcus Culture - Final Group B Beta Streptococcus is not isolated. 05/29/21 05:30 Nasal Secretion SARS-CoV-2 Antigen (Rapid) - Final Assessment & Plan (1) Vacuum-assisted vaginal delivery: PLAN: Doing well day #3 status post spontaneous vaginal d elivery. Will discharge to home with routine instructions on labetalol 200 mg twice daily. Follow-up in 1 to 2 weeks for blood pressure check and then in 6 weeks for check.
--- NOTE | 2021-06-02 07:33 | PCM.DC ---
Discharge Instructions Activity May resume sexual activity in: 4-6 weeks Additional Activity Instructions:: Nothing in the vagina for 4-6 weeks. You may return to work/school in 6 weeks. Follow Up Care Please Follow Up With: Angie Hoyos MD When: Call [phone] to make an appointment with your doctor in 6weeks. If you had elevated blood pressure or 4th degree laceration, you will need to be seen in 2 weeks. Test Results: Test results from this visit will be discussed in further detail at your follow-up appointment, if applicable. Discharge Plan Admission Admit Date/Time: 05/29/21 04:55 Primary Reason for Your Visit: Vaginal Delivery Attending Provider: Jasmin Luo Primary Care Provider: Tiffanie Kebede Primary Instructions Forms: Information Patient Instructions: After a Vaginal Discharge Orders/Prescriptions Prescriptions: New labetalol 200 mg tablet 200 mg PO BID Qty: 60 RF: 1 Continued Vitamin C 1,000 mg Tablet Extended Release 1,000 mg PO DAILY RF: 0 omega-3 fatty acids Capsule 2,000 mg PO DAILY RF: 0 cholecalciferol (vitamin D3) [Vitamin D3] 125 mcg (5,000 unit) Tablet 500 mcg PO MO RF: 0 Mario-Inositol 2,000 mg PO/SL BID RF: 0 Smarty Pants 4 tab PO/SL DAILY RF: 0 Discontinued Progestrone 100 mg OTHER DAILY RF: 0 Levemir FlexTouch U-100 Insuln 100 unit/mL (3 mL) Insulin Pen 18 unit SUBCUT QHS RF: 0 heparin (bovine) 5,000 units OTHER TID RF: 0 Referrals / Follow Up: Care Physician,No Primary [Primary Care Provider] - Disposition Disposition (needs filled in before D/C Order can be placed): Home, Self Care
--- NOTE | 2021-06-02 07:40 | PCM.DC.SUM ---
Providers Date of Admission: 05/29/21 Primary Care Physician: Tiffanie Primary Care Phys Reason For Visit: LABOR Diagnosis Discharge Diagnosis (1) Vacuum-assisted vaginal delivery: Status: Acute Code(s): Z37.9 - Outcome of delivery, unspecified Medications at Discharge Home Medications Mario-Inositol 2,000 mg PO/SL BID 08/31/20 Smarty Pants 4 tab PO/SL DAILY 08/31/20 Vitamin C 1,000 mg PO DAILY 08/31/20 cholecalciferol (vitamin D3) [Vitamin D3] 500 mcg PO MO 08/31/20 omega-3 fatty acids 2,000 mg PO DAILY 08/31/20 labetalol 200 mg PO BID #60 tab 06/02/21 Weight / BMI Weight Weight: 142 lb Body Mass Index (BMI) 28.6 ABG / Lab / Microbiology Data Result Diagrams: 05/29/21 16:55 05/29/21 16:55 Microbiology: Microbiology 05/29/21 Unknown Genital vaginal Group B Streptococcus Culture - Final Group B Beta Streptococcus is not isolated. 05/29/21 05:30 Nasal Secretion SARS-CoV-2 Antigen (Rapid) - Final D/C Instructions May resume sexual activity in: 4-6 weeks Additional Activity Instructions: Nothing in the vagina for 4-6 weeks. You may return to work/school in 6 weeks. Please Follow Up With: Angie Hoyos MD When: Call [phone] to make an appointment with your doctor in 6weeks. If you had elevated blood pressure or 4th degree laceration, you will need to be seen in 2 weeks. Meaningful Use Info Meaningful Use Diagnoses (Choose all that apply): None applicable Discharge Plan Admission Admit Date/Time: 05/29/21 04:55 Primary Reason for Your Visit: Vaginal Delivery Attending Provider: Jasmin Luo Primary Care Provider: Care Physician,Tiffanie Primary Instructions Forms: Information Patient Instructions: After a Vaginal Discharge Orders/Prescriptions Prescriptions: New labetalol 200 mg tablet 200 mg PO BID Qty: 60 RF: 1 Continued Vitamin C 1,000 mg Tablet Extended Release 1,000 mg PO DAILY RF: 0 omega-3 fatty acids Capsule 2,000 mg PO DAILY RF: 0 cholecalciferol (vitamin D3) [Vitamin D3] 125 mcg (5,000 unit) Tablet 500 mcg PO MO RF: 0 Mario-Inositol 2,000 mg PO/SL BID RF: 0 Smarty Pants 4 tab PO/SL DAILY RF: 0 Discontinued Progestrone 100 mg OTHER DAILY RF: 0 Levemir FlexTouch U-100 Insuln 100 unit/mL (3 mL) Insulin Pen 18 unit SUBCUT QHS RF: 0 heparin (bovine) 5,000 units OTHER TID RF: 0 Referrals / Follow Up: Care Physician,No Primary [Primary Care Provider] - Disposition Disposition (needs filled in before D/C Order can be placed): Home, Self Care
[2021-06-02 08:45] VITALS: BP 121/67; PULSE 93; PULSE 95; RESP 18; TEMP 36.8; O2SAT 98
[2021-06-02] MEDS: Labetalol 200 MG Tablet PO (09:42)
[2021-06-02 12:54] VITALS: BP 128/76; PULSE 102; RESP 18; TEMP 37; O2SAT 98
[2021-06-02 12:55] VITALS: O2SAT 98
[2021-06-02 12:56] VITALS: BP 128/76; PULSE 103
[2021-06-08 08:56] LABS: Pathology Specimen OB SEE PATHOLOGY REPORT
== END 2021-06-02 13:15 | disposition home or self-care (01) | DRG 768 ==
LOC: WPOUT 04:59 → WP 04:59
PROVIDERS: Obstetrics & Gynecology; Admitting Provider Student in an Organized Health Care Education/Training Program; Visit Provider Student in an Organized Health Care Education/Training Program
DX: O14.10 Severe pre-eclampsia, unspecified trimester (principal); O24.424 Gestational diabetes mellitus in childbirth, insulin controlled; O44.43 Low lying placenta NOS or without hemorrhage, third trimester; O69.81X0 Labor and delivery complicated by cord around neck, without compression, not applicable or unspecified; O76 Abnormality in fetal heart rate and rhythm complicating labor and delivery; Z37.0 Single live birth; O72.1 Other immediate postpartum hemorrhage; O63.1 Prolonged second stage (of labor); O70.1 Second degree perineal laceration during delivery; Z3A.35 35 weeks gestation of pregnancy; Z20.822 Contact with and (suspected) exposure to COVID-19
CPT/HCPCS: 59025; 59050; 80053; 82962; 83615; 85025; 86850; 86900; 86901; 87081; 87426; 87653; 88307; 99218; J7030; J7120; G0378